=== PATIENT | female | born 1985 | race African-American/Black ===

== ENCOUNTER 2016-09-22 20:54 | Emergency (ER) | payer OTHER ==
[2016-09-22] MEDS ORDERED: KETOROLAC 30 MG/ML VIAL (J1885) As Ordered ONE (22:45)
[2016-09-22] MEDS ORDERED: METOCLOPRAMIDE INJ 10MG/2ML VIAL (J2765) As Ordered ONE (22:45)
[2016-09-22] MEDS ORDERED: diphenhydrAMINE INJ 50MG/ML VIAL (J1200) As Ordered ONE (22:45)
[2016-09-22 23:19] LABS: BASO % 0.2 % (0.0-1.0); EOS # 0.2 K/mm3 (0.0-0.50); EOS % 1.8 % (0.0-3.0); LARGE UNSTAINED CELL # 0.2 K/mm3 (0.0-0.4); LARGE UNSTAINED CELL % 1.4 % (0.0-4.0); LYMPH # 3.9 K/mm3 (1.5-4.5); LYMPH % 34.7 % (24.0-44.0); MEAN CORPUSCULAR HGB CONC 32.3 g/dl (32.0-36.5); MEAN CORPUSCULAR VOLUME 80.3 fl (80.0-96.0); MONO # 0.5 K/mm3 (0.0-0.8); NEUTROPHILS # 6.6 K/mm3 (1.8-7.7); NEUTROPHILS % 57.9 % (36.0-66.0); PLATELET COUNT, AUTOMATED 328 k/mm3 (150-450); RED CELL DISTRIBUTION WIDTH 13.3 % (11.5-14.5); WHITE BLOOD COUNT 11.3 K/mm3 (4.0-10.0)
--- NOTE | 2016-09-22 23:20 | REPUSA ---
CT of the head Clinical history: Headache. Technique: Multiple axial CT images were obtained through the head without administration of contrast . Findings: The ventricles and sulci are symmetric bilaterally. There is no evidence of acute hemorrhag e or infarct. There is no midline shift, mass effect, or extra-axial fluid collection. The osseous st ructures are unremarkable. The visualized paranasal sinuses and mastoid air cells are clear. Impression: Negative study.
[2016-09-22 23:36] LABS: ANION GAP 8 MEQ/L (8-16); BLOOD UREA NITROGEN 14 MG/DL (7-18); CALCIUM LEVEL 8.6 MG/DL (8.5-10.1); CARBON DIOXIDE LEVEL 23 MEQ/L (21-32); CHLORIDE LEVEL 107 MEQ/L (98-107); CREATININE FOR GFR 0.91 MG/DL (0.55-1.02); GLOMERULAR FILTRATION RATE > 60.0 (>60); GLUCOSE, FASTING 112 MG/DL (70-105); SODIUM LEVEL 138 MEQ/L (136-145)
[2016-09-22 23:39] LABS: ERYTHROCYTE SEDIMENTATION RATE 41 mm/hr (0-20)
[2016-09-22] MEDS ORDERED: dexameTHASONE 4 MG/ML 1ML VIAL (J1100) As Ordered ONE (23:57)
--- NOTE | 2016-09-23 00:21 | EDDOCDS ---
Physician Documentation [facility] Name: Kaylene Garduno Age: 30 yrs Sex: Female : 1985 Arrival Date: 09/22/2016 Time: 20:54 Bed I5 / M5 Private MD: KYLEE Mendoza Disposition: 09/22/16 23:58 Discharged to Home/Self Care. Impression: Migraine without aura, intractable. - Condition is Stable. - Discharge Instructions: Migraine Headache, Temporal Arteritis. - Prescriptions for Prednisone 20 mg Oral Tablet - take 2 tablet by ORAL route once daily for 5 days; 10 tablet. - Medication Reconciliation, Local Pharmacy Hours form. - Follow up: Jyoti Harp MD; When: Call to arrange an appointment; Reason: Recheck today's complaints, Continuance of care. Follow up: KYLEE Mendoza; When: Call to arrange an appointment; Reason: Recheck today's complaints, Continuance of care. - Problem is new. - Symptoms are unchanged. Historical: - Allergies: no known allergies; - Home Meds: 1. lisinopril 10 mg Oral tab 1 tab once daily 2. Januvia 25 mg oral tab daily 3. trazodone 150 mg Oral Tb24 1 tab nightly 4. Headache PM 25-500 mg oral tab 2 tabs once daily 5. acid hand fur cleaner as needed - PMHx: Hypertension; GERD; - PSHx: LEEP Procedure; ; - Social history: Smoking status: Patient uses tobacco products, current every day smoker. No barriers to communication noted, The patient speaks fluent Beninese. - Family history: Not pertinent. - : The pt / caregiver states he / she is not on anticoagulants. Home medication list is obtained from the patient. - Exposure Risk Screening:: None identified. 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 4 in. (162.56 cm) (R); 23:47 BP 134 / 68; Pulse 69; Resp 18; Temp 98.6; Pulse Ox 100% on R/A; kas2 20:56 Body Mass Index 42.05 (111.13 kg, 162.56 cm) dd6 MDM: 22:36 IV Saline Lock ordered. mo1 22:36 Metoclopramide 10 mg IV at 40 mg/hr once over 15 mins ordered. mo1 22:36 diphenhydrAMINE 25 mg IVP once ordered. mo1 22:36 ketorolac 30 mg IVP once ordered. mo1 22:37 CBC with Diff Ordered. EDMS 22:37 BMP Ordered. EDMS 22:37 CRP Ordered. EDMS 22:37 ESR Ordered. EDMS 22:37 CT Head Without Contrast Ordered. EDMS 22:44 [facility] Payment Agreement was scanned into [employer] and attached to record. zo 23:34 Financial registration complete. pm4 23:40 ESR Reviewed. mo1 23:40 CRP Reviewed. mo1 23:40 BMP Reviewed. mo1 23:41 CBC with Diff Reviewed. mo1 23:48 [facility] Payment Agreement was scanned into [employer] and attached to record. pm4 23:55 Dexamethasone 10 mg IV at bolus once ordered. mo1 23:55 CT Head Without Contrast Reviewed. mo1 Administered Medications: 23:16 Drug: Metoclopramide 10 mg [metoclopramide 5 mg/mL injection solution] Route: IV; Rate: pml 40 mg/hr; Infused Over: 15 mins; Site: right antecubital; 23:16 Drug: diphenhydrAMINE 25 mg [diphenhydramine 50 mg/mL injection solution (0.5 mL)] pml Route: IVP; Site: right antecubital; 23:16 Drug: ketorolac 30 mg [ketorolac 30 mg/mL (1 mL) injection solution (1 mL)] Route: IVP; pml Site: right antecubital; 09/23 00:01 Drug: Dexamethasone 10 mg [dexamethasone 4 mg/mL injection solution] Route: IV; Rate: kas2 bolus; Site: right antecubital; Signatures: Dispatcher [employer] Raffi Elias Paulina, RN RN pml O'Hagan, Michael, PA PA mo1 Brionna Clifford RN RN ms18 Karyn Clifford RN RN kas2 Andrew Jj, Reg Reg pm4 The chart was reviewed and I authenticate all verbal orders and agree with the evaluation and treatment provided.Attachments: 09/22 22:44 [facility] Payment Agreement zo 23:48 [facility] Payment Agreement pm4 MTDD
--- NOTE | 2016-09-23 00:22 | EDDOCDS ---
Nurse's Notes [facility] Name: Kaylene Garduno Age: 30 yrs Sex: Female : 1985 Arrival Date: 09/22/2016 Time: 20:54 Bed I5 / M5 Private MD: [place] [facility] [place]: Migraine without aura, intractable Presentation: 09/22 21:03 Presenting complaint: Patient states: since last Weds she has been having headaches on ms18 the L side of her head. This patient has no additional risk factors. Adult Sepsis Screening: The patient does not have new or worsening altered mentation. Patient's respiratory rate is less than 22. Systolic blood pressure is greater than 100. Patient has a qSOFA score of 0- Negative Sepsis Screen. Suicide/Homicide risk assessment- the patient denies having any suicidal and/or homicidal ideations and does not present with any other emotional, behavioral or mental health complaints. Status: The patient is a dependent. Transition of care: patient was not received from another setting of care. 21:03 Acuity: NITIN Level 3 ms18 21:03 Method Of Arrival: Walkin/Carried/Asstd ms18 Triage Assessment: 21:07 Headache History: This patient does not have a history of previous headaches. General: ms18 Appears in no apparent distress, comfortable, Behavior is appropriate for age, cooperative. Pain: Pain currently is 6 out of 10 on a pain scale. Pain began 3 hours ago last thus Also complains of photophobia, strain on relationship. HIV screening NA for this visit Offered previously. Neurological: Level of Consciousness is awake, alert, obeys commands, Oriented to person, place, time. Respiratory: Airway is patent Respiratory effort is even, unlabored. Derm: Skin is pink, warm & dry. normal. 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 lisinopril 10 mg Oral tab 1 tab once daily 2. Januvia 25 mg oral tab daily 3. trazodone 150 mg Oral Tb24 1 tab nightly 4. Headache PM 25-500 mg oral tab 2 tabs once daily 5. acid senior integration developer as needed - PMHx: Hypertension; GERD; - PSHx: LEEP Procedure; ; - Social history: Smoking status: Patient uses tobacco products, current every day smoker. No barriers to communication noted, The patient speaks fluent Swedish. - Family history: Not pertinent. - : The pt / caregiver states he / she is not on anticoagulants. Home medication list is obtained from the patient. - Exposure Risk Screening:: None identified. Screenin:14 Screening information is obtained from the patient. Fall risk: No risks identified. pml Assistance ADL's: requires no assistance with activities of daily living. Abuse/DV Screen: The patient / caregiver reports he/she is: not in a situation that causes fear, pain or injury. Nutritional screening: No deficits noted. Advance Directives: Currently, there is no health care proxy. home support is adequate. Assessment: 23:14 General: Appears in no apparent distress, comfortable, Behavior is appropriate for age, pml cooperative. Pain: Location: headache Pain currently is 8 out of 10 on a pain scale. Neurological: Level of Consciousness is awake, alert, Oriented to person, place, time. Cardiovascular: Capillary refill < 3 seconds. Respiratory: Airway is patent Respiratory effort is even, unlabored. GI: Abdomen is non- distended obese. Derm: Skin is pink, warm & dry. 23:36 General: reports headache is improved 2/10 - lights dimmed for comfort. resting quietly pml on stretcher. resps easy and unlabored, skin color normal. 09/23 00:02 General: Appears in no apparent distress, comfortable, Behavior is appropriate for age, kas2 cooperative. Pain: Location: head Pain currently is 2 out of 10 on a pain scale. Neurological: Level of Consciousness is awake, alert, Oriented to person, place, time. Respiratory: Airway is patent Respiratory effort is even, unlabored, Respiratory pattern is regular, symmetrical. Derm: Skin is intact, Skin is dry, Skin temperature is warm. Vital Signs: 09/22 20:56 BP 162 / 79; Pulse 78; Resp 18 S; Temp 98.4(O); Pulse Ox 100% on R/A; Weight 111.13 kg dd6 (R); Height 5 ft. 4 in. (162.56 cm) (R); 23:47 BP 134 / 68; Pulse 69; Resp 18; Temp 98.6; Pulse Ox 100% on R/A; kas2 20:56 Body Mass Index 42.05 (111.13 kg, 162.56 cm) dd6 Vitals: 20:56 Log In Time: September 22, 2016 at 20:54. dd6 ED Course: 20:55 Patient visited by Jacoby Christian PCA. dd6 20:55 [place] [facility] [place] Private Physician. dd6 20:55 Patient moved to Waiting dd6 20:56 Patient moved to Pre RCE dd6 21:04 Triage Initiated ms18 22:17 Patient moved to Triage 3 jmb 22:18 Celso Tobin PA is PHCP. mo1 22:18 Yves Ham DO is Attending Physician. mo1 22:28 Patient visited by Celso Tobin PA. mo1 22:37 Patient moved to I5 / M5 jmb 22:44 [facility] Payment Agreement was scanned into [employer] and attached to record. zo 23:14 The patient / caregiver is instructed regarding the plan of care and ED course. Patient pml has correct armband on for positive identification. Bed in low position. Call light in reach. 23:14 Inserted peripheral IV: 20gauge IV in right antecubital area and blood collected. pml Patient tolerated the procedure well. 23:15 Patient visited by Laura Reynoso RN. pml 23:36 Patient visited by Laura Reynoso RN. pml 23:47 Patient visited by Karyn Clifford RN. kas2 23:48 [facility] Payment Agreement was scanned into [employer] and attached to record. pm4 23:50 CT Head Without Contrast Returned. EDMS 23:58 Jyoti Harp MD is Referral Physician. mo1 09/23 00:01 Karyn Clifford RN is Primary Nurse. kas2 00:02 JENI Mendoza is Referral Physician. mo1 00:03 Patient visited by Karyn Clifford RN. kas2 00:18 Discontinued IV bleeding controlled, pressure dressing applied, No redness/swelling at kas2 site. No procedures done that require assistance. Administered Medications: 09/22 23:16 Drug: Metoclopramide 10 mg [metoclopramide 5 mg/mL injection solution] Route: IV; Rate: pml 40 mg/hr; Infused Over: 15 mins; Site: right antecubital; 23:16 Drug: diphenhydrAMINE 25 mg [diphenhydramine 50 mg/mL injection solution (0.5 mL)] pml Route: IVP; Site: right antecubital; 23:16 Drug: ketorolac 30 mg [ketorolac 30 mg/mL (1 mL) injection solution (1 mL)] Route: IVP; pml Site: right antecubital; 09/23 00:01 Drug: Dexamethasone 10 mg [dexamethasone 4 mg/mL injection solution] Route: IV; Rate: kas2 bolus; Site: right antecubital; Order Results: Lab Order: CBC with Diff; SPEC'M 09/22/16 22:49 Test: WHITE BLOOD COUNT; Value: 11.3; Range: 4.0-10.0; Abnormal: Above high normal; Units: K/mm3; Status: F Test: RED BLOOD COUNT; Value: 4.21; Range: 4.00-5.40; Units: M/mm3; Status: F Test: HEMOGLOBIN; Value: 10.9; Range: 12.0-16.0; Abnormal: Below low normal; Units: g/dl; Status: F Test: HEMATOCRIT; Value: 33.8; Range: 36.0-47.0; Abnormal: Below low normal; Units: %; Status: F Test: MEAN CORPUSCULAR VOLUME; Value: 80.3; Range: 80.0-96.0; Units: fl; Status: F Test: MEAN CORPUSCULAR HEMOGLOBIN; Value: 26.0; Range: 27.0-33.0; Abnormal: Below low normal; Units: pg; Status: F Test: MEAN CORPUSCULAR HGB CONC; Value: 32.3; Range: 32.0-36.5; Units: g/dl; Status: F Test: RED CELL DISTRIBUTION WIDTH; Value: 13.3; Range: 11.5-14.5; Units: %; Status: F Test: PLATELET COUNT, AUTOMATED; Value: 328; Range: 150-450; Units: k/mm3; Status: F Test: NEUTROPHILS %; Value: 57.9; Range: 36.0-66.0; Units: %; Status: F Test: LYMPH %; Value: 34.7; Range: 24.0-44.0; Units: %; Status: F Test: MONO %; Value: 4.0; Range: 0.0-5.0; Units: %; Status: F Test: EOS %; Value: 1.8; Range: 0.0-3.0; Units: %; Status: F Test: BASO %; Value: 0.2; Range: 0.0-1.0; Units: %; Status: F Test: LARGE UNSTAINED CELL %; Value: 1.4; Range: 0.0-4.0; Units: %; Status: F Test: NEUTROPHILS #; Value: 6.6; Range: 1.8-7.7; Units: K/mm3; Status: F Test: LYMPH #; Value: 3.9; Range: 1.5-4.5; Units: K/mm3; Status: F Test: MONO #; Value: 0.5; Range: 0.0-0.8; Units: K/mm3; Status: F Test: EOS #; Value: 0.2; Range: 0.0-0.50; Units: K/mm3; Status: F Test: BASO #; Value: 0.0; Range: 0.0-0.2; Units: K/mm3; Status: F Test: LARGE UNSTAINED CELL #; Value: 0.2; Range: 0.0-0.4; Units: K/mm3; Status: F Lab Order: [facility]; SPEC'M 09/22/16 22:49 Test: GLUCOSE, FASTING; Value: 112; Range: 70-105; Abnormal: Above high normal; Units: MG/DL; Status: F Test: BLOOD UREA NITROGEN; Value: 14; Range: 7-18; Units: MG/DL; Status: F Test: CREATININE FOR GFR; Value: 0.91; Range: 0.55-1.02; Units: MG/DL; Status: F Test: GLOMERULAR FILTRATION RATE; Value: > 60.0; Range: >60; Status: F Test: SODIUM LEVEL; Value: 138; Range: 136-145; Units: MEQ/L; Status: F Test: POTASSIUM SERUM; Value: 4.0; Range: 3.5-5.1; Units: MEQ/L; Status: F Test: CHLORIDE LEVEL; Value: 107; Range: 98-107; Units: MEQ/L; Status: F Test: CARBON DIOXIDE LEVEL; Value: 23; Range: 21-32; Units: MEQ/L; Status: F Test: ANION GAP; Value: 8; Range: 8-16; Units: MEQ/L; Status: F Test: CALCIUM LEVEL; Value: 8.6; Range: 8.5-10.1; Units: MG/DL; Status: F Test Note: ; Units are mL/min/1.73 m2 Chronic Kidney Disease Staging per NKF: Stage I & II GFR >=60 Normal to Mildly Decreased Stage III GFR 30-59 Moderately Decreased Stage IV GFR 15-29 Severely Decreased Stage V GFR <15 Very Little GFR Left ESRD GFR <15 on PREPARATION ROOM MANAGER Lab Order: CRP; SPEC'M 09/22/16 22:49 Test: C REACTIVE PROTEIN QUANTITATIV; Value: 3.16; Range: 0.00-0.30; Abnormal: Above high normal; Units: MG/DL; Status: F Lab Order: ESR; SPEC'M 09/22/16 22:49 Test: ERYTHROCYTE SEDIMENTATION RATE; Value: 41; Range: 0-20; Abnormal: Above high normal; Units: mm/hr; Status: F Radiology Order: CT Head Without Contrast Test: CT Head Without Contrast REASON FOR EXAMINATION: LEFT SIDED HEADACHE; ; CT of the head; Clinical history: Headache.; Technique: Multiple axial CT images were obtained through the head without administration of contrast; .; Findings: The ventricles and sulci are symmetric bilaterally. There is no evidence of acute hemorrhag; e or infarct. There is no midline shift, mass effect, or extra-axial fluid collection. The osseous st; ructures are unremarkable. The visualized paranasal sinuses and mastoid air cells are clear.; Impression: Negative study.; ; Outcome: 09/22 23:58 Discharge ordered by Provider. mo1 09/23 00:18 Discharge Assessment: patient administered narcotics - no. The following High Risk kas2 Discharge criteria are identified: None. Discharged to home ambulatory, with family. Condition: good Condition: stable Condition: improved. CT Study completed. Property :Personal belongings accompany Pt. 00:19 Patient left the ED. kas2 Signatures: Dispatcher [employer] EDMS Raffi Arrington Daniell, [place]OV[place] METAL SASH SETTER dd6 Laura Reynoso RN RN Celso Ryan PA PA mo1 Storm Willson,RN RN jmb Brionna Clifford RN RN ms18 Karyn Clifford RN RN kas2 Andrew Jj, Reg Reg pm4 MTDD
--- NOTE | 2016-09-25 01:20 | EDDOCDS ---
Physician Documentation [facility] Name: Kaylene Garduno Age: 30 yrs Sex: Female : 1985 Arrival Date: 09/22/2016 Time: 20:54 Bed I5 / M5 Private MD: KYLEE Mendoza Disposition: 09/22/16 23:58 Discharged to Home/Self Care. Impression: Migraine without aura, intractable. - Condition is Stable. - Discharge Instructions: Migraine Headache, Temporal Arteritis. - Prescriptions for Prednisone 20 mg Oral Tablet - take 2 tablet by ORAL route once daily for 5 days; 10 tablet. - Medication Reconciliation, Local Pharmacy Hours form. - Follow up: Jyoti Harp MD; When: Call to arrange an appointment; Reason: Recheck today's complaints, Continuance of care. Follow up: KYLEE Mendoza; When: Call to arrange an appointment; Reason: Recheck today's complaints, Continuance of care. - Problem is new. - Symptoms are unchanged. Historical: - Allergies: no known allergies; - Home Meds: 1. lisinopril 10 mg Oral tab 1 tab once daily 2. Januvia 25 mg oral tab daily 3. trazodone 150 mg Oral Tb24 1 tab nightly 4. Headache PM 25-500 mg oral tab 2 tabs once daily 5. acid director medical economics as needed - PMHx: Hypertension; GERD; - PSHx: LEEP Procedure; ; - Social history: Smoking status: Patient uses tobacco products, current every day smoker. No barriers to communication noted, The patient speaks fluent Welsh. - Family history: Not pertinent. - : The pt / caregiver states he / she is not on anticoagulants. Home medication list is obtained from the patient. - Exposure Risk Screening:: None identified. 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 4 in. (162.56 cm) (R); 23:47 BP 134 / 68; Pulse 69; Resp 18; Temp 98.6; Pulse Ox 100% on R/A; kas2 20:56 Body Mass Index 42.05 (111.13 kg, 162.56 cm) dd6 MDM: 22:36 IV Saline Lock ordered. mo1 22:36 Metoclopramide 10 mg IV at 40 mg/hr once over 15 mins ordered. mo1 22:36 diphenhydrAMINE 25 mg IVP once ordered. mo1 22:36 ketorolac 30 mg IVP once ordered. mo1 22:37 CBC with Diff Ordered. EDMS 22:37 BMP Ordered. EDMS 22:37 CRP Ordered. EDMS 22:37 ESR Ordered. EDMS 22:37 CT Head Without Contrast Ordered. EDMS 22:44 [facility] Payment Agreement was scanned into [employer] and attached to record. zo 23:34 Financial registration complete. pm4 23:40 ESR Reviewed. mo1 23:40 CRP Reviewed. mo1 23:40 BMP Reviewed. mo1 23:41 CBC with Diff Reviewed. mo1 23:48 [facility] Payment Agreement was scanned into [employer] and attached to record. pm4 23:55 Dexamethasone 10 mg IV at bolus once ordered. mo1 23:55 CT Head Without Contrast Reviewed. mo1 09/23 11:52 T-Sheet-- Draft Copy was scanned into [employer] and attached to record. gb Administered Medications: 09/22 23:16 Drug: Metoclopramide 10 mg [metoclopramide 5 mg/mL injection solution] Route: IV; Rate: pml 40 mg/hr; Infused Over: 15 mins; Site: right antecubital; 23:16 Drug: diphenhydrAMINE 25 mg [diphenhydramine 50 mg/mL injection solution (0.5 mL)] [facility] Route: IVP; Site: right antecubital; 23:16 Drug: ketorolac 30 mg [ketorolac 30 mg/mL (1 mL) injection solution (1 mL)] Route: IVP; pml Site: right antecubital; 09/23 00:01 Drug: Dexamethasone 10 mg [dexamethasone 4 mg/mL injection solution] Route: IV; Rate: kas2 bolus; Site: right antecubital; Signatures: Dispatcher [employer] EDMS Lakeshia Jo, Dung Reg gb Raffi Arrington Paulina, RN RN pml Celso Tobin PA PA mo1 Brionna Clifford,RN RN ms18 Karyn Clifford RN RN kas2 Andrew Jj, Reg Reg pm4 The chart was reviewed and I authenticate all verbal orders and agree with the evaluation and treatment provided.Attachments: 09/22 22:44 [facility] [place] Payment Agreement zo 23:48 [facility] Payment Agreement pm4 09/23 11:52 T-Sheet-- Draft Copy gb Chart Complete MTDD
--- NOTE | 2016-09-25 01:20 | EDDOCDS ---
Nurse's Notes [facility] Name: Kaylene Garduno Age: 30 yrs Sex: Female : 1985 Arrival Date: 09/22/2016 Time: 20:54 Bed I5 / M5 Private MD: [place] [facility]: Migraine without aura, intractable Presentation: 09/22 21:03 Presenting complaint: Patient states: since last Weds she has been having headaches on ms18 the L side of her head. This patient has no additional risk factors. Adult Sepsis Screening: The patient does not have new or worsening altered mentation. Patient's respiratory rate is less than 22. Systolic blood pressure is greater than 100. Patient has a qSOFA score of 0- Negative Sepsis Screen. Suicide/Homicide risk assessment- the patient denies having any suicidal and/or homicidal ideations and does not present with any other emotional, behavioral or mental health complaints. Status: The patient is a dependent. Transition of care: patient was not received from another setting of care. 21:03 Acuity: NITIN Level 3 ms18 21:03 Method Of Arrival: Walkin/Carried/Asstd ms18 Triage Assessment: 21:07 Headache History: This patient does not have a history of previous headaches. General: ms18 Appears in no apparent distress, comfortable, Behavior is appropriate for age, cooperative. Pain: Pain currently is 6 out of 10 on a pain scale. Pain began 3 hours ago last thus Also complains of photophobia, strain on relationship. HIV screening NA for this visit Offered previously. Neurological: Level of Consciousness is awake, alert, obeys commands, Oriented to person, place, time. Respiratory: Airway is patent Respiratory effort is even, unlabored. Derm: Skin is pink, warm & dry. normal. PET CARE ATTENDANT: 21:07 LMP 09/22/2016 ms18 Historical: - Allergies: no known allergies; - Home Meds: 1. lisinopril 10 mg Oral tab 1 tab once daily 2. Januvia 25 mg oral tab daily 3. trazodone 150 mg Oral Tb24 1 tab nightly 4. Headache PM 25-500 mg oral tab 2 tabs once daily 5. 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 No barriers to communication noted, The patient speaks fluent Vincentian. - Family history: Not pertinent. - : The pt / caregiver states he / she is not on anticoagulants. Home medication list is obtained from the patient. - Exposure Risk Screening:: None identified. Screenin:14 Screening information is obtained from the patient. Fall risk: No risks identified. pml Assistance ADL's: requires no assistance with activities of daily living. Abuse/DV Screen: The patient / caregiver reports he/she is: not in a situation that causes fear, pain or injury. Nutritional screening: No deficits noted. Advance Directives: Currently, there is no health care proxy. home support is adequate. Assessment: 23:14 General: Appears in no apparent distress, comfortable, Behavior is appropriate for age, pml cooperative. Pain: Location: headache Pain currently is 8 out of 10 on a pain scale. Neurological: Level of Consciousness is awake, alert, Oriented to person, place, time. Cardiovascular: Capillary refill < 3 seconds. Respiratory: Airway is patent Respiratory effort is even, unlabored. GI: Abdomen is non- distended obese. Derm: Skin is pink, warm & dry. 23:36 General: reports headache is improved 2/10 - lights dimmed for comfort. resting quietly pml on stretcher. resps easy and unlabored, skin color normal. 09/23 00:02 General: Appears in no apparent distress, comfortable, Behavior is appropriate for age, kas2 cooperative. Pain: Location: head Pain currently is 2 out of 10 on a pain scale. Neurological: Level of Consciousness is awake, alert, Oriented to person, place, time. Respiratory: Airway is patent Respiratory effort is even, unlabored, Respiratory pattern is regular, symmetrical. Derm: Skin is intact, Skin is dry, Skin temperature is warm. Vital Signs: 09/22 20:56 BP 162 / 79; Pulse 78; Resp 18 S; Temp 98.4(O); Pulse Ox 100% on R/A; Weight 111.13 kg dd6 (R); Height 5 ft. 4 in. (162.56 cm) (R); 23:47 BP 134 / 68; Pulse 69; Resp 18; Temp 98.6; Pulse Ox 100% on R/A; kas2 20:56 Body Mass Index 42.05 (111.13 kg, 162.56 cm) dd6 Vitals: 20:56 Log In Time: September 22, 2016 at 20:54. dd6 ED Course: 20:55 Patient visited by Jacoby Christian PCA. dd6 20:55 [facility] Physician. dd6 20:55 Patient moved to Waiting dd6 20:56 Patient moved to Pre RCE dd6 21:04 Triage Initiated ms18 22:17 Patient moved to Triage 3 jmb 22:18 Celso oTbin PA is PHCP. mo1 22:18 Yves Ham DO is Attending Physician. mo1 22:28 Patient visited by Celso Tobin PA. mo1 22:37 Patient moved to I5 / M5 jmb 22:44 [facility] Payment Agreement was scanned into [employer] and attached to record. zo 23:14 The patient / caregiver is instructed regarding the plan of care and ED course. Patient pml has correct armband on for positive identification. Bed in low position. Call light in reach. 23:14 Inserted peripheral IV: 20gauge IV in right antecubital area and blood collected. pml Patient tolerated the procedure well. 23:15 Patient visited by Laura Reynoso RN. pml 23:36 Patient visited by Laura Reynoso RN. pml 23:47 Patient visited by Karyn Clifford RN. kas2 23:48 [facility] Payment Agreement was scanned into Program[employer] and attached to record. pm4 23:50 CT Head Without Contrast Returned. EDMS 23:58 Jyoti Harp MD is Referral Physician. mo1 09/23 00:01 Karyn Clifford RN is Primary Nurse. kas2 00:02 [facility] [place]erral Physician. mo1 00:03 Patient visited by Karyn Clifford RN. kas2 00:18 Discontinued IV bleeding controlled, pressure dressing applied, No redness/swelling at kas2 site. No procedures done that require assistance. 11:52 T-Sheet-- Draft Copy was scanned into Program[employer] and attached to record. gb Administered Medications: 09/22 23:16 Drug: Metoclopramide 10 mg [metoclopramide 5 mg/mL injection solution] Route: IV; Rate: pml 40 mg/hr; Infused Over: 15 mins; Site: right antecubital; 23:16 Drug: diphenhydrAMINE 25 mg [diphenhydramine 50 mg/mL injection solution (0.5 mL)] pml Route: IVP; Site: right antecubital; 23:16 Drug: ketorolac 30 mg [ketorolac 30 mg/mL (1 mL) injection solution (1 mL)] Route: IVP; pml Site: right antecubital; 09/23 00:01 Drug: Dexamethasone 10 mg [dexamethasone 4 mg/mL injection solution] Route: IV; Rate: kas2 bolus; Site: right antecubital; Order Results: Lab Order: CBC with Diff; SPEC'M 09/22/16 22:49 Test: WHITE BLOOD COUNT; Value: 11.3; Range: 4.0-10.0; Abnormal: Above high normal; Units: K/mm3; Status: F Test: RED BLOOD COUNT; Value: 4.21; Range: 4.00-5.40; Units: M/mm3; Status: F Test: HEMOGLOBIN; Value: 10.9; Range: 12.0-16.0; Abnormal: Below low normal; Units: g/dl; Status: F Test: HEMATOCRIT; Value: 33.8; Range: 36.0-47.0; Abnormal: Below low normal; Units: %; Status: F Test: MEAN CORPUSCULAR VOLUME; Value: 80.3; Range: 80.0-96.0; Units: fl; Status: F Test: MEAN CORPUSCULAR HEMOGLOBIN; Value: 26.0; Range: 27.0-33.0; Abnormal: Below low normal; Units: pg; Status: F Test: MEAN CORPUSCULAR HGB CONC; Value: 32.3; Range: 32.0-36.5; Units: g/dl; Status: F Test: RED CELL DISTRIBUTION WIDTH; Value: 13.3; Range: 11.5-14.5; Units: %; Status: F Test: PLATELET COUNT, AUTOMATED; Value: 328; Range: 150-450; Units: k/mm3; Status: F Test: NEUTROPHILS %; Value: 57.9; Range: 36.0-66.0; Units: %; Status: F Test: LYMPH %; Value: 34.7; Range: 24.0-44.0; Units: %; Status: F Test: MONO %; Value: 4.0; Range: 0.0-5.0; Units: %; Status: F Test: EOS %; Value: 1.8; Range: 0.0-3.0; Units: %; Status: F Test: BASO %; Value: 0.2; Range: 0.0-1.0; Units: %; Status: F Test: LARGE UNSTAINED CELL %; Value: 1.4; Range: 0.0-4.0; Units: %; Status: F Test: NEUTROPHILS #; Value: 6.6; Range: 1.8-7.7; Units: K/mm3; Status: F Test: LYMPH #; Value: 3.9; Range: 1.5-4.5; Units: K/mm3; Status: F Test: MONO #; Value: 0.5; Range: 0.0-0.8; Units: K/mm3; Status: F Test: EOS #; Value: 0.2; Range: 0.0-0.50; Units: K/mm3; Status: F Test: BASO #; Value: 0.0; Range: 0.0-0.2; Units: K/mm3; Status: F Test: LARGE UNSTAINED CELL #; Value: 0.2; Range: 0.0-0.4; Units: K/mm3; Status: F Lab Order: [facility]; SPEC'M 09/22/16 22:49 Test: GLUCOSE, FASTING; Value: 112; Range: 70-105; Abnormal: Above high normal; Units: MG/DL; Status: F Test: BLOOD UREA NITROGEN; Value: 14; Range: 7-18; Units: MG/DL; Status: F Test: CREATININE FOR GFR; Value: 0.91; Range: 0.55-1.02; Units: MG/DL; Status: F Test: GLOMERULAR FILTRATION RATE; Value: > 60.0; Range: >60; Status: F Test: SODIUM LEVEL; Value: 138; Range: 136-145; Units: MEQ/L; Status: F Test: POTASSIUM SERUM; Value: 4.0; Range: 3.5-5.1; Units: MEQ/L; Status: F Test: CHLORIDE LEVEL; Value: 107; Range: 98-107; Units: MEQ/L; Status: F Test: CARBON DIOXIDE LEVEL; Value: 23; Range: 21-32; Units: MEQ/L; Status: F Test: ANION GAP; Value: 8; Range: 8-16; Units: MEQ/L; Status: F Test: CALCIUM LEVEL; Value: 8.6; Range: 8.5-10.1; Units: MG/DL; Status: F Test Note: ; Units are mL/min/1.73 m2 Chronic Kidney Disease Staging per NKF: Stage I & II GFR >=60 Normal to Mildly Decreased Stage III GFR 30-59 Moderately Decreased Stage IV GFR 15-29 Severely Decreased Stage V GFR <15 Very Little GFR Left ESRD GFR <15 on SUPERVISOR STAVE CUTTING Lab Order: CRP; SPEC'M 09/22/16 22:49 Test: C REACTIVE PROTEIN QUANTITATIV; Value: 3.16; Range: 0.00-0.30; Abnormal: Above high normal; Units: MG/DL; Status: F Lab Order: ESR; SPEC'M 09/22/16 22:49 Test: ERYTHROCYTE SEDIMENTATION RATE; Value: 41; Range: 0-20; Abnormal: Above high normal; Units: mm/hr; Status: F Radiology Order: CT Head Without Contrast Test: CT Head Without Contrast REASON FOR EXAMINATION: LEFT SIDED HEADACHE; ; CT of the head; Clinical history: Headache.; Technique: Multiple axial CT images were obtained through the head without administration of contrast; .; Findings: The ventricles and sulci are symmetric bilaterally. There is no evidence of acute hemorrhag; e or infarct. There is no midline shift, mass effect, or extra-axial fluid collection. The osseous st; ructures are unremarkable. The visualized paranasal sinuses and mastoid air cells are clear.; Impression: Negative study.; ; Outcome: 09/22 23:58 Discharge ordered by Provider. mo1 09/23 00:18 Discharge Assessment: patient administered narcotics - no. The following High Risk [facility] Discharge criteria are identified: None. Discharged to home ambulatory, with family. Condition: good Condition: stable Condition: improved. CT Study completed. Property :Personal belongings accompany Pt. 00:19 Patient left the ED. kas2 Signatures: Dispatcher [employer] EDLakeshia Peralta, Jacy Guptann zo Jacoby Christian, SENIOR DATA QUALITY ANALYST SENIOR DATA QUALITY ANALYST dd6 Laura Reynoso,RN RN pml Celso Tobin, RYLIE PA gricel1 Storm Willson,RN RN lisbetb Brionna Clifford,RN RN ms18 Karyn Clifford,RN RN kas2 Andrew Jj, Reg Reg pm4 Chart Complete MTDD
--- NOTE | 2016-09-25 01:20 | EDDOCDS ---
Physician Documentation [facility] Name: Kaylene Garduno Age: 30 yrs Sex: Female : 1985 Arrival Date: 09/22/2016 Time: 20:54 Bed I5 / M5 Private MD: KYLEE Mendoza Disposition: 09/22/16 23:58 Discharged to Home/Self Care. Impression: Migraine without aura, intractable. - Condition is Stable. - Discharge Instructions: Migraine Headache, Temporal Arteritis. - Prescriptions for Prednisone 20 mg Oral Tablet - take 2 tablet by ORAL route once daily for 5 days; 10 tablet. - Medication Reconciliation, Local Pharmacy Hours form. - Follow up: Jyoti Harp MD; When: Call to arrange an appointment; Reason: Recheck today's complaints, Continuance of care. Follow up: KYLEE Mendoza; When: Call to arrange an appointment; Reason: Recheck today's complaints, Continuance of care. - Problem is new. - Symptoms are unchanged. Historical: - Allergies: no known allergies; - Home Meds: 1. lisinopril 10 mg Oral tab 1 tab once daily 2. Januvia 25 mg oral tab daily 3. trazodone 150 mg Oral Tb24 1 tab nightly 4. Headache PM 25-500 mg oral tab 2 tabs once daily 5. 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 No barriers to communication noted, The patient speaks fluent Syriac. - Family history: Not pertinent. - : The pt / caregiver states he / she is not on anticoagulants. Home medication list is obtained from the patient. - Exposure Risk Screening:: None identified. 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 4 in. (162.56 cm) (R); 23:47 BP 134 / 68; Pulse 69; Resp 18; Temp 98.6; Pulse Ox 100% on R/A; kas2 20:56 Body Mass Index 42.05 (111.13 kg, 162.56 cm) dd6 MDM: 22:36 IV Saline Lock ordered. mo1 22:36 Metoclopramide 10 mg IV at 40 mg/hr once over 15 mins ordered. mo1 22:36 diphenhydrAMINE 25 mg IVP once ordered. mo1 22:36 ketorolac 30 mg IVP once ordered. mo1 22:37 CBC with Diff Ordered. EDMS 22:37 BMP Ordered. EDMS 22:37 CRP Ordered. EDMS 22:37 ESR Ordered. EDMS 22:37 CT Head Without Contrast Ordered. EDMS 22:44 [facility] Payment Agreement was scanned into Mi[employer] and attached to record. zo 23:34 Financial registration complete. pm4 23:40 ESR Reviewed. mo1 23:40 CRP Reviewed. mo1 23:40 BMP Reviewed. mo1 23:41 CBC with Diff Reviewed. mo1 23:48 [facility] Payment Agreement was scanned into [employer] and attached to record. pm4 23:55 Dexamethasone 10 mg IV at bolus once ordered. mo1 23:55 CT Head Without Contrast Reviewed. mo1 09/23 11:52 T-Sheet-- Draft Copy was scanned into Miira and attached to record. gb Administered Medications: 09/22 23:16 Drug: Metoclopramide 10 mg [metoclopramide 5 mg/mL injection solution] Route: IV; Rate: pml 40 mg/hr; Infused Over: 15 mins; Site: right antecubital; 23:16 Drug: diphenhydrAMINE 25 mg [diphenhydramine 50 mg/mL injection solution (0.5 mL)] [facility] Route: IVP; Site: right antecubital; 23:16 Drug: ketorolac 30 mg [ketorolac 30 mg/mL (1 mL) injection solution (1 mL)] Route: IVP; pml Site: right antecubital; 09/23 00:01 Drug: Dexamethasone 10 mg [dexamethasone 4 mg/mL injection solution] Route: IV; Rate: kas2 bolus; Site: right antecubital; Signatures: Dispatcher [employer] EDMS Lakeshia Jo, Dung Reg gb Raffi Arrington Paulina, RN RN pml Celso Tobin PA PA mo1 Brionna Clifford,RN RN ms18 Karyn Clifford RN RN kas2 Andrew Jj, Reg Reg pm4 The chart was reviewed and I authenticate all verbal orders and agree with the evaluation and treatment provided.Attachments: 09/22 22:44 [facility] [place] Payment Agreement zo 23:48 [facility] Payment Agreement pm4 09/23 11:52 T-Sheet-- Draft Copy gb Chart Complete MTDD
== END 2016-09-23 00:19 | disposition home or self-care (01) ==
LOC: M ED 20:54
DX: R51 Headache (principal); I10 Essential (primary) hypertension; K21.9 Gastro-esophageal reflux disease without esophagitis; F17.200 Nicotine dependence, unspecified, uncomplicated; Z79.899 Other long term (current) drug therapy
CPT/HCPCS: 36415; 70450; 80048; 85025; 85652; 86140; 96374; 96375; 99284; J1100; J1200; J1885; J2765

== ENCOUNTER → 2016-12-08 | Outpatient (REF) | payer MEDICAID | LOC: M SFHCLERA 18:23 | PROVIDERS: ATTEND Physician Assistant | DX: J02.9 Acute pharyngitis, unspecified (principal) ==

== ENCOUNTER → 2017-01-27 | Outpatient (REF) | payer OTHER, MEDICAID ==
[2017-01-27 12:20] LABS: MEAN CORPUSCULAR HEMOGLOBIN 27.5 pg (27.0-33.0); MEAN CORPUSCULAR HGB CONC 32.8 g/dl (32.0-36.5); MEAN CORPUSCULAR VOLUME 83.9 fl (80.0-96.0); RED CELL DISTRIBUTION WIDTH 13.2 % (11.5-14.5); WHITE BLOOD COUNT 10.5 K/mm3 (4.0-10.0)
[2017-01-27 12:35] LABS: ALBUMIN 3.6 GM/DL (3.2-5.2); ALBUMIN/GLOBULIN RATIO 1.03 (1.00-1.93); ALKALINE PHOSPHATASE 45 U/L (45-117); ALT/SGPT 21 U/L (12-78); ANION GAP 5 MEQ/L (8-16); AST/SGOT 10 U/L (15-37); BILIRUBIN,TOTAL 0.3 MG/DL (0.2-1.0); BLOOD UREA NITROGEN 9 MG/DL (7-18); CALCIUM LEVEL 8.7 MG/DL (8.5-10.1); CARBON DIOXIDE LEVEL 27 MEQ/L (21-32); CHLORIDE LEVEL 107 MEQ/L (98-107); CHOLESTEROL LEVEL 160 MG/DL (<200); CREATININE FOR GFR 0.87 MG/DL (0.55-1.02); FREE T4 1.03 NG/DL (0.76-1.46); GLOMERULAR FILTRATION RATE > 60.0 (>60); GLUCOSE, FASTING 127 MG/DL (70-105); POTASSIUM SERUM 4.7 MEQ/L (3.5-5.1); SODIUM LEVEL 139 MEQ/L (136-145); TOTAL PROTEIN 7.1 GM/DL (6.4-8.2); TRIGLYCERIDES LEVEL 75 MG/DL (<150)
== END ==
LOC: M SFHCLERA 08:40
PROVIDERS: ATTEND Family Medicine
DX: Z30.011 Encounter for initial prescription of contraceptive pills (principal); R73.03 Prediabetes; J02.9 Acute pharyngitis, unspecified

== ENCOUNTER → 2017-03-11 | Outpatient (REF) | payer OTHER, MEDICAID | LOC: M SFHCLERA 10:34 | PROVIDERS: ATTEND Family Medicine | DX: Z3A.01 Less than 8 weeks gestation of pregnancy (principal) ==

== ENCOUNTER → 2017-03-11 | Outpatient (CLI) | payer OTHER | LOC: M LAB 11:28 | PROVIDERS: ATTEND Family Medicine | DX: Z3A.01 Less than 8 weeks gestation of pregnancy (principal) ==

== ENCOUNTER → 2017-03-13 | Outpatient (CLI) | payer OTHER ==
--- NOTE | 2017-03-13 11:06 | REP ---
Obstetric sonography: History: Supervision of . Findings: Transabdominal and transvaginal scanning demonstrates a intrauterine gestational sac containing a yolk sac and what appears to be an embryonic pole. No motion or cardiac motion was observed. The yolk sac is 5.8 mm. The crown-rump length is 3.9 mm. This would correspond with a 6-week 0-day gestational age estimate. A small subchorionic hemorrhage is identified. This measures 2.0 x 2.0 centimeters. Impression: Findings consistent with intrauterine demise at 6 weeks 0 days by crown-rump length. The patient is 10 weeks 0 days by LMP. Clinical and possibly sonographic followup is advised. Signed by Johnny España MD 03/13/2017 10:57 A
== END ==
LOC: M LRY 09:05
PROVIDERS: ATTEND Family Medicine
DX: Z36 Encounter for antenatal screening of mother (principal)

== ENCOUNTER → 2017-03-17 | Outpatient (REF) | payer OTHER, MEDICAID | LOC: M SFHCLERA 09:24 | PROVIDERS: ATTEND Family Medicine | DX: O03.9 Complete or unspecified spontaneous abortion without complication (principal) ==

== ENCOUNTER → 2017-04-13 | Outpatient (CLI) | payer OTHER, MEDICAID ==
[2017-04-13 16:24] LABS: MEAN CORPUSCULAR HEMOGLOBIN 27.5 pg (27.0-33.0); MEAN CORPUSCULAR HGB CONC 31.5 g/dl (32.0-36.5); MEAN CORPUSCULAR VOLUME 87.4 fl (80.0-96.0); RED CELL DISTRIBUTION WIDTH 13.8 % (11.5-14.5); WHITE BLOOD COUNT 7.6 K/mm3 (4.0-10.0)
== END ==
LOC: M LAB 15:50
PROVIDERS: ATTEND Family Medicine
DX: O03.9 Complete or unspecified spontaneous abortion without complication (principal)

== ENCOUNTER → 2017-04-13 | Outpatient (REF) | payer OTHER, MEDICAID | LOC: M SFHCLERA 13:27 | PROVIDERS: ATTEND Family Medicine | DX: O03.9 Complete or unspecified spontaneous abortion without complication (principal) ==

== ENCOUNTER → 2017-09-14 | Outpatient (REF) | payer OTHER, MEDICAID ==
[2017-09-14 12:21] LABS: MALB URINE SIEMENS 7.4 MG/L
[2017-09-14 12:25] LABS: ALBUMIN 3.9 GM/DL (3.2-5.2); ALBUMIN/GLOBULIN RATIO 1.05 (1.00-1.93); ALKALINE PHOSPHATASE 48 U/L (45-117); ALT/SGPT 18 U/L (12-78); ANION GAP 7 MEQ/L (8-16); AST/SGOT 15 U/L (7-37); BASO # 0.1 10^3/uL (0.0-0.2); BASO % 0.6 % (0.0-1.0); BILIRUBIN,TOTAL 0.2 MG/DL (0.2-1.0); BLOOD UREA NITROGEN 10 MG/DL (7-18); CALCIUM LEVEL 8.5 MG/DL (8.5-10.1); CARBON DIOXIDE LEVEL 23 MEQ/L (21-32); CHLORIDE LEVEL 108 MEQ/L (98-107); CHOLESTEROL LEVEL 163 MG/DL (<200); CHOLESTEROL RISK RATIO 3.395 (<5); CREATININE FOR GFR 0.81 MG/DL (0.55-1.02); EOS # 0.2 10^3/uL (0.0-0.50); EOS % 1.9 % (0.0-3.0); GLOMERULAR FILTRATION RATE > 60.0 (>60); GLUCOSE, FASTING 111 MG/DL (70-105); HDL CHOLESTEROL 48 MG/DL (>40); IMMATURE GRANULOCYTE % 0.3 % (0-0); LDL CHOLESTEROL 101.4 MG/DL (<100); LYMPH # 3.1 10^3/uL (1.5-4.5); MEAN CORPUSCULAR HEMOGLOBIN 26.4 pg (27.0-33.0); MEAN CORPUSCULAR HGB CONC 32.4 g/dl (32.0-36.5); MEAN CORPUSCULAR VOLUME 81.3 fl (80.0-96.0); MONO # 0.6 10^3/uL (0.0-0.8); MONO % 6.3 % (0.0-5.0); NEUTROPHILS # 4.9 10^3/uL (1.8-7.7); NEUTROPHILS % 55.9 % (36.0-66.0); NON-HDL-C 115 MG/DL; POTASSIUM SERUM 4.6 MEQ/L (3.5-5.1); RED BLOOD COUNT 4.55 10^6/uL (4.00-5.40); RED CELL DISTRIBUTION WIDTH 14.3 % (11.5-14.5); SODIUM LEVEL 138 MEQ/L (136-145); TOTAL PROTEIN 7.6 GM/DL (6.4-8.2); TRIGLYCERIDES LEVEL 68 MG/DL (<150); WHITE BLOOD COUNT 8.8 10^3/uL (4.0-10.0)
[2017-09-14 12:35] LABS: ADD MORPHOLOGY? YES; PLATELET COUNT, AUTOMATED 323 10^3/uL (150-450); POS COUNT POS FLAG
[2017-09-14 12:36] LABS: PLATELET CLUMPS SMALL AMT; PLATELET ESTIMATE NORMAL (NORMAL); POIKILOCYTOSIS 1+
[2017-09-14 12:45] LABS: ESTIMATED AVERAGE GLUCOSE 134 MG/DL (60-110); HEMOGLOBIN A1c 6.3 %
== END ==
LOC: M SFHCLERA 08:57
DX: E11.9 Type 2 diabetes mellitus without complications (principal)

== ENCOUNTER → 2017-10-12 | Outpatient (REF) | payer OTHER, MEDICAID ==
[2017-10-12 22:49] LABS: CHLAMYDIA DNA AMPLIFICATION NEGATIVE (NEGATIVE); GC DNA AMPLIFICATION NEGATIVE (NEGATIVE)
[2017-10-14 11:28] LABS: HIV 1&2 SCREEN CENTAUR NEGATIVE (NEGATIVE)
== END ==
LOC: M SFHCLERA 11:32
DX: Z11.3 Encounter for screening for infections with a predominantly sexual mode of transmission (principal)

== ENCOUNTER → 2017-11-20 | Outpatient (REF) | payer OTHER, MEDICAID | LOC: M SFHCLERA 11:25 | DX: J02.9 Acute pharyngitis, unspecified (principal) ==

== ENCOUNTER → 2018-02-08 | Outpatient (REF) | payer OTHER, MEDICAID | LOC: M SFHCLERA 08:42 | DX: E11.9 Type 2 diabetes mellitus without complications (principal) ==

== ENCOUNTER → 2018-09-29 | Outpatient (REF) | payer OTHER, MEDICAID ==
[2018-09-29 12:19] LABS: BASO # 0.1 10^3/uL (0.0-0.2); BASO % 0.6 % (0.0-1.0); EOS # 0.2 10^3/uL (0.0-0.50); EOS % 2.3 % (0.0-3.0); HEMOGLOBIN 11.7 g/dl (12.0-15.5); LYMPH # 2.7 10^3/uL (1.5-4.5); LYMPH % 32.5 % (24.0-44.0); MEAN CORPUSCULAR HEMOGLOBIN 26.4 pg (27.0-33.0); MEAN CORPUSCULAR HGB CONC 31.6 g/dl (32.0-36.5); MEAN CORPUSCULAR VOLUME 83.3 fl (80.0-96.0); MONO # 0.5 10^3/uL (0.0-0.8); MONO % 6.4 % (0.0-5.0); NEUTROPHILS # 4.8 10^3/uL (1.8-7.7); PLATELET COUNT, AUTOMATED 318 10^3/uL (150-450); RED BLOOD COUNT 4.44 10^6/uL (4.00-5.40); WHITE BLOOD COUNT 8.3 10^3/uL (4.0-10.0)
[2018-09-29 12:50] LABS: HEMOGLOBIN A1c 7.2 %
[2018-09-29 13:07] LABS: MALB URINE SIEMENS 5.3 MG/L; MAU/CREAT RATIO 4.4 MCG/MG (0.0-30.0)
[2018-09-29 13:11] LABS: ALBUMIN 3.8 GM/DL (3.2-5.2); ALT/SGPT 23 U/L (12-78); BILIRUBIN,TOTAL 0.2 MG/DL (0.2-1.0); BLOOD UREA NITROGEN 10 MG/DL (7-18); CALCIUM LEVEL 8.4 MG/DL (8.5-10.1); CARBON DIOXIDE LEVEL 24 MEQ/L (21-32); CHLORIDE LEVEL 108 MEQ/L (98-107); CHOLESTEROL LEVEL 168 MG/DL (<200); GLOMERULAR FILTRATION RATE > 60.0 (>60); GLUCOSE, FASTING 87 MG/DL (70-100); HDL CHOLESTEROL 52 MG/DL (>40); LDL CHOLESTEROL 105 MG/DL (<100); NON-HDL-C 116 MG/DL; POTASSIUM SERUM 5.1 MEQ/L (3.5-5.1); SODIUM LEVEL 139 MEQ/L (136-145); TOTAL PROTEIN 7.3 GM/DL (6.4-8.2); TRIGLYCERIDES LEVEL 54 MG/DL (<150)
== END ==
LOC: M SFHCLERA 09:47
PROVIDERS: ATTEND Family Medicine
DX: E11.9 Type 2 diabetes mellitus without complications (principal)

== ENCOUNTER → 2018-11-03 | Outpatient (REF) | payer OTHER, MEDICAID ==
[2018-11-03 20:25] LABS: CHLAMYDIA DNA AMPLIFICATION NEGATIVE (NEGATIVE); GC DNA AMPLIFICATION NEGATIVE (NEGATIVE)
== END ==
LOC: M SFHCLERA 16:50
PROVIDERS: ATTEND Family Medicine
DX: Z12.4 Encounter for screening for malignant neoplasm of cervix (principal)

== ENCOUNTER → 2018-12-17 | Outpatient (REF) | payer OTHER, MEDICAID | LOC: M SFHCLERA 16:29 | PROVIDERS: ATTEND Nurse Practitioner Family | DX: R39.11 Hesitancy of micturition (principal) ==

== ENCOUNTER → 2019-01-03 | Outpatient (REF) | payer OTHER, MEDICAID ==
[2019-01-03 17:14] LABS: APPEARANCE, URINE CLEAR (CLEAR); BACTERIA, URINE AUTO NEGATIVE (NEGATIVE); BILIRUBIN, URINE AUTO NEGATIVE (NEGATIVE); BLOOD, URINE BLOOD NEGATIVE (NEGATIVE); COLOR, URINE YELLOW (YELLOW); GLUCOSE, URINE (UA) AUTO NEGATIVE (NEGATIVE); KETONE, URINE AUTO NEGATIVE (NEGATIVE); LEUKOCYTE ESTERASE, URINE AUTO NEGATIVE (NEGATIVE); MUCUS, URINE SMALL (NEGATIVE); NITRITE, URINE AUTO NEGATIVE (NEGATIVE); PROTEIN, URINE AUTO NEGATIVE (NEGATIVE); RBC, URINE AUTO 0 /HPF (0-3); SPECIFIC GRAVITY URINE AUTO 1.018 (1.002-1.035); SQUAMOUS EPITHELIAL CELL UR AU 0 /HPF (0-6); UROBILINOGEN, URINE AUTO 0.2 mg/dL (0.0-2.0); WBC, URINE AUTO 0 /HPF (0-3)
[2019-01-03 17:55] LABS: ALBUMIN 3.9 GM/DL (3.2-5.2); ALT/SGPT 21 U/L (12-78); BILIRUBIN,TOTAL 0.3 MG/DL (0.2-1.0); BLOOD UREA NITROGEN 10 MG/DL (7-18); CALCIUM LEVEL 8.7 MG/DL (8.5-10.1); CARBON DIOXIDE LEVEL 30 MEQ/L (21-32); CHLORIDE LEVEL 102 MEQ/L (98-107); CREATININE FOR GFR 0.91 MG/DL (0.55-1.30); GLOMERULAR FILTRATION RATE > 60.0 (>60); GLUCOSE, FASTING 133 MG/DL (70-100); SODIUM LEVEL 138 MEQ/L (136-145); TOTAL PROTEIN 8.2 GM/DL (6.4-8.2)
[2019-01-03 17:58] LABS: HEMOGLOBIN A1c 7.2 %
[2019-01-03 18:00] LABS: HCG, SERUM QUALITATIVE NEGATIVE (NEGATIVE)
== END ==
LOC: M SFHCLERA 13:52
PROVIDERS: ATTEND Family Medicine
DX: E11.9 Type 2 diabetes mellitus without complications (principal); R10.32 Left lower quadrant pain; Z72.51 High risk heterosexual behavior

== ENCOUNTER → 2019-01-25 | Outpatient (CLI) | payer MEDICAID, OTHER ==
--- NOTE | 2019-01-25 13:51 | REP ---
Clinical: Left-sided abdominopelvic pain. Technique: Real time bonner scale ultrasound examination using curved array transducer. Findings: The bilateral kidneys are normal in contour, size, echogenicity, and reniform shape without hydronephrosis, nephrolithiasis, cystic or renal mass lesion. No perinephric fluid collections are identified. Bladder is normal in appearance and demonstrates normal bilateral ureteral jets. Right kidney measures 10.2 x 5.2 x 3.9 cm. Left kidney measures 10.3 x 5.5 x 5.8 cm. Impression: Normal renal ultrasound. Electronically Signed by Baljit Tanner MD 01/25/2019 01:43 P
--- NOTE | 2019-01-25 13:53 | REP ---
Clinical: Left lower quadrant pelvic pain . Technique: Transabdominal pelvic ultrasound followed by transvaginal examination for better evaluation of the endometrium and adnexa with color Doppler evaluation of the ovaries. Findings: Bladder is unremarkable and measures 10.2 x 6.3 x 7.8 cm . Normal retroverted uterus measures 7.1 x 4.5 x 5.1 cm . The endometrial complex measures 3.0 mm thickness. No discrete uterine or endometrial abnormalities are appreciated. Bilateral ovaries are normal in appearance and vascularity without evidence for torsion. Right ovary measures 3.0 x 2.0 x 2.2 cm ; R I = 0.68 . Left ovary measures 2.9 x 2.2 x 2.1 cm with 1.3 cm hemorrhagic follicle ; R I = 0.64 . Trace free fluid is nonspecific and likely physiologic . Impression: 1. Essentially normal uterus and adnexa. No torsion. 2. 1.3 cm left hemorrhagic cyst likely physiologic. Findings may be related to patient's symptoms. If necessary repeat ultrasound in 4-6 weeks may be obtained to evaluate for resolution. Electronically Signed by Baljit Tanner MD 01/25/2019 01:45 P
== END ==
LOC: M RAD 09:47
PROVIDERS: ATTEND Family Medicine
DX: R10.32 Left lower quadrant pain (principal); N83.201 Unspecified ovarian cyst, right side

== ENCOUNTER → 2019-03-02 | Outpatient (CLI) | payer OTHER ==
--- NOTE | 2019-03-02 16:44 | REP ---
Clinical: Dating and viability. Technique: Transabdominal and transvaginal first trimester obstetrical ultrasound with color Doppler evaluation. Findings: Uterus demonstrates decidual reaction with 8 mm gestational sac corresponding to 4 weeks 5 days gestational age without yolk sac or pole yet identified. Right ovary is normal in appearance and measures 2.8 x 1.6 x 2.2 cm. Left ovary measures 4.7 x 3.3 point 2.9 cm and includes 1.4 cm cyst possibly representing corpus luteal cyst. Small amount of free fluid noted in the pelvis is nonspecific. The bladder is unremarkable and measures 10.3 x 6.2 x 9.3 cm. Impression: Gestational sac with mean sac diameter at 4 weeks 5 days gestational age. Correlation with serial HCG levels and repeat ultrasound evaluation may be warranted. Electronically Signed by Baljit Tanner MD 03/02/2019 04:36 P
== END ==
LOC: M LRY 14:05
PROVIDERS: ATTEND Family Medicine
DX: Z32.01 Encounter for pregnancy test, result positive (principal)

== ENCOUNTER → 2019-03-10 | Outpatient (CLI) | payer OTHER, MEDICAID ==
--- NOTE | 2019-03-11 07:31 | REP ---
FIRST TRIMESTER OB AND EV PROBE ULTRASOUND: 03/10/2019. Clinical history: Supervision of , first trimester. Evaluate left ovarian corpus luteum. Comparison: 03/02/2019. Findings: With transabdominal imaging, there is a gestational sac which is better seen on the EV probe. There is a good decidual reaction and there is a pole visible on today's study with a length of 5 mm corresponding to 6 weeks 1 day which would give an EDC of 11/02/2019. heart activity noted at 113. There is a small subchorionic bleed evident about 2.7 x 2.3 x 1.7 cm. A yolk sac is evident. The left ovary measures 4 x 3.1 x 2.7 cm. There is a 2 x 1.6 cm corpus luteum in that left ovary. No adjacent free fluid. Right ovary as visualized unremarkable. Bladder only partly filled and measuring at 3.4 x 2.9 x 2.2 cm. Impression: 1. Gestational sac in the fundus with a pole at 6 weeks 1 day by crown-rump length giving EDC 11/02/2019. Heart rate 113 bpm. Small subchorionic bleed noted. 2. Corpus luteum cyst on the left side is slightly larger today as described above. Electronically Signed by Evaristo Martinez MD 03/11/2019 08:23 A
== END ==
LOC: M LRY 08:50
PROVIDERS: ATTEND Family Medicine
DX: O36.8911 Maternal care for other specified fetal problems, first trimester, fetus 1 (principal); Z3A.01 Less than 8 weeks gestation of pregnancy; O26.891 Other specified pregnancy related conditions, first trimester; N83.12 Corpus luteum cyst of left ovary

== ENCOUNTER → 2019-03-16 | Outpatient (CLI) | payer OTHER, MEDICAID ==
[2019-03-16 13:25] LABS: BASO # 0.1 10^3/uL (0.0-0.2); BASO % 0.5 % (0.0-1.0); EOS # 0.1 10^3/uL (0.0-0.50); EOS % 1.2 % (0.0-3.0); HEMATOCRIT 32.9 % (36.0-47.0); HEMOGLOBIN 10.6 g/dl (12.0-15.5); LYMPH # 3.4 10^3/uL (1.5-4.5); LYMPH % 31.2 % (24.0-44.0); MEAN CORPUSCULAR HEMOGLOBIN 26.3 pg (27.0-33.0); MEAN CORPUSCULAR HGB CONC 32.2 g/dl (32.0-36.5); MEAN CORPUSCULAR VOLUME 81.6 fl (80.0-96.0); MONO # 0.8 10^3/uL (0.0-0.8); MONO % 7.4 % (0.0-5.0); NEUTROPHILS # 6.5 10^3/uL (1.8-7.7); NEUTROPHILS % 59.4 % (36.0-66.0); PLATELET COUNT, AUTOMATED 336 10^3/uL (150-450); RED BLOOD COUNT 4.03 10^6/uL (4.00-5.40)
[2019-03-16 13:58] LABS: ALT/SGPT 19 U/L (12-78); BILIRUBIN,TOTAL 0.2 MG/DL (0.2-1.0); GLOMERULAR FILTRATION RATE > 60.0 (>60); HEMOGLOBIN A1c 7.4 %; LDH LACTATE DEHYDROGENASE 142 U/L (84-246); RUBELLA IgG QUALITATIVE IMMUNE (IMMUNE)
[2019-03-16 14:00] LABS: TOTAL PROTEIN,RANDOM URINE 10.8 MG/DL (0.0-12.0)
[2019-03-16 14:21] LABS: HEPATITIS C VIRUS ABY INDEX 0.1 INDEX (<0.8); HIV 1&2 SCREEN CENTAUR NEGATIVE (NEGATIVE)
[2019-03-16 15:40] LABS: CHLAMYDIA DNA AMPLIFICATION NEGATIVE (NEGATIVE); GC DNA AMPLIFICATION NEGATIVE (NEGATIVE)
== END ==
LOC: M SMT 10:31
PROVIDERS: ATTEND Advanced Practice Midwife
DX: Z34.81 Encounter for supervision of other normal pregnancy, first trimester (principal); Z3A.00 Weeks of gestation of pregnancy not specified

== ENCOUNTER → 2019-04-18 | Outpatient (CLI) | payer OTHER, MEDICAID | LOC: M SMT 10:26 | PROVIDERS: ATTEND Obstetrics & Gynecology | DX: Z34.81 Encounter for supervision of other normal pregnancy, first trimester (principal); Z3A.00 Weeks of gestation of pregnancy not specified ==

== ENCOUNTER → 2019-06-02 | Outpatient (CLI) | payer OTHER, MEDICAID ==
--- NOTE | 2019-06-02 13:24 | REP ---
Obstetric ultrasound for anatomy: There is a single intrauterine gestation in a transverse lie with the head to the maternal right. There is movement and cardiac activity. The heart rate is 153 beats per minute. The placenta is posterior. There is no previa or abruptio. The placenta is grade zero. Subjectively the amniotic fluid volume is normal . The cervix measures 4.2 cm length. Gestational age by today's ultrasound is 18 weeks 5 days. Gestational age by the first ultrasound is 17 weeks 6 days. Gestational age by LMP is 19 weeks 0 days. The CLARISSA for 17 weeks 6 days is 11/04/2019. weight is 271 grams/0 pounds, 9 ounces. This is the 94th percentile for 17-week 6 days and 49th percentile for 19 weeks 0 days. The following anatomic structures are identified and are unremarkable: Cranium, choroid plexus, face, lungs, four-chamber heart, diaphragm, stomach, cord insertion, three-vessel cord, kidneys, bladder, spine and upper lower extremities. Suboptimally demonstrated because of position are the cavum septum pellucidum, cerebellum, facial profile, upper lip and the cardiac right and left ventricular outflow tracts. A followup study dedicated to these structures might be considered. Electronically Signed by Percy Chaudhry MD 06/02/2019 01:16 P
== END ==
LOC: M LRY 08:40
PROVIDERS: ATTEND Obstetrics & Gynecology
DX: O24.112 Pre-existing type 2 diabetes mellitus, in pregnancy, second trimester (principal); Z3A.18 18 weeks gestation of pregnancy; O32.2XX0 Maternal care for transverse and oblique lie, not applicable or unspecified

== ENCOUNTER → 2019-06-15 | Outpatient (CLI) | payer OTHER ==
[2019-06-15 18:34] LABS: HEMOGLOBIN A1c 6.1 %
== END ==
LOC: M SMT 15:05
PROVIDERS: ATTEND Obstetrics & Gynecology
DX: O24.112 Pre-existing type 2 diabetes mellitus, in pregnancy, second trimester (principal)

== ENCOUNTER → 2019-06-24 | Outpatient (CLI) | payer OTHER, MEDICAID ==
--- NOTE | 2019-06-24 20:17 | REP ---
OB ULTRASOUND: Real-time sonographic evaluation of the gravid uterus performed. There is a single living intrauterine gestation. Estimated gestational age is 21 weeks 2 days, EDC 11/02/2019. Today's measurements indicate appropriate growth. BPD 50 mm = 21 weeks 0 days, 43rd percentile HC 186 mm = 21 weeks 0 days, 39th percentile AC 161 mm = 21 weeks 1 day, 47th percentile FL 40 mm = 22 weeks 6 days, 87th percentile HC/AC ratio 1.16, within normal range. Estimated weight 451 grams, 62nd percentile. Cervix is closed and measures 3.8 cm in length. heart rate 147 beats per minute. SEEN/GROSSLY UNREMARKABLE Lateral ventricles yes Posterior fossa yes Upper lip no Four-chamber heart no LVOT no RVOT no Stomach yes Cord insertion yes Three vessel cord yes Kidneys yes Bladder yes Spine no position: Vertex. Placenta: Posterior and fundal and grade 0 with no previa or abruption. Amniotic fluid: Within normal limits. Electronically Signed by Percy Zhou MD 06/25/2019 03:33 P
== END ==
LOC: M LRY 08:33
PROVIDERS: ATTEND Obstetrics & Gynecology
DX: O24.112 Pre-existing type 2 diabetes mellitus, in pregnancy, second trimester (principal); Z3A.21 21 weeks gestation of pregnancy

== ENCOUNTER → 2019-07-11 | Outpatient (CLI) | payer OTHER, MEDICAID ==
--- NOTE | 2019-07-12 05:54 | REP ---
Clinical: Anatomical evaluation. Comparison: 06/24/2019 . Findings: Examination demonstrates a single live intrauterine in cephalic presentation. motion is identified by technologist. Placenta is noted posterior/fundal and grade zero without evidence for placenta previa or abruption. Amniotic fluid volume is normal. Cervix measures 3.8 cm in length and appears closed. No evidence for nuchal cord. Gestational age by first US 23 weeks 3 days days with CLARISSA 11/04/2019 . Gestational age by current measurements 23 weeks 5 days with CLARISSA 11/02/2019 . FHR equals 150 beats per minute. Estimated weight 665 grams ( 65th percentile). Anatomical assessment demonstrates normal structures including cranium, choroid plexus, cavum, cerebellum/posterior fossa, facial features, lungs, four-chamber heart/ventricular outflow tracts, diaphragm, stomach, cord insertion/three-vessel cord, kidneys/bladder, spine, and extremities. Impression: Single live intrauterine in cephalic presentation demonstrating appropriate interval growth. Anatomical assessment is complete and normal. No gross abnormalities are identified. Electronically Signed by Baljit Tanner MD 07/12/2019 05:46 A
== END ==
LOC: M LRY 14:04
PROVIDERS: ATTEND Obstetrics & Gynecology
DX: O24.112 Pre-existing type 2 diabetes mellitus, in pregnancy, second trimester (principal); Z3A.23 23 weeks gestation of pregnancy; Z36.2 Encounter for other antenatal screening follow-up

== ENCOUNTER → 2019-07-18 | Outpatient (REF) | payer OTHER | LOC: M LAB REF 16:35 | PROVIDERS: ATTEND Obstetrics & Gynecology | DX: O24.113 Pre-existing type 2 diabetes mellitus, in pregnancy, third trimester (principal) ==

== ENCOUNTER → 2019-08-01 | Outpatient (CLI) | payer OTHER ==
[2019-08-01 14:01] LABS: HEMOGLOBIN 9.9 g/dl (12.0-15.5); MEAN CORPUSCULAR HEMOGLOBIN 26.1 pg (27.0-33.0); MEAN CORPUSCULAR HGB CONC 31.9 g/dl (32.0-36.5); MEAN CORPUSCULAR VOLUME 81.8 fl (80.0-96.0); PLATELET COUNT, AUTOMATED 346 10^3/uL (150-450); RED BLOOD COUNT 3.79 10^6/uL (4.00-5.40); WHITE BLOOD COUNT 13.9 10^3/uL (4.0-10.0)
[2019-08-01 14:32] LABS: TOTAL PROTEIN,RANDOM URINE 39.2 MG/DL (0.0-12.0)
[2019-08-02 06:30] LABS: ALT/SGPT 19 U/L (12-78); BILIRUBIN,TOTAL 0.2 MG/DL (0.2-1.0); CREATININE FOR GFR 0.68 MG/DL (0.55-1.30); GLOMERULAR FILTRATION RATE > 60.0 (>60); LDH LACTATE DEHYDROGENASE 137 U/L (84-246); URIC ACID 3.5 MG/DL (2.6-6.0)
== END ==
LOC: M PLALAB 10:46
PROVIDERS: ATTEND Obstetrics & Gynecology
DX: O24.319 Unspecified pre-existing diabetes mellitus in pregnancy, unspecified trimester (principal); O10.919 Unspecified pre-existing hypertension complicating pregnancy, unspecified trimester; Z3A.00 Weeks of gestation of pregnancy not specified

== ENCOUNTER → 2019-08-02 | Outpatient (CLI) | payer OTHER ==
--- NOTE | 2019-08-02 12:45 | REP ---
OB ULTRASOUND: Real-time sonographic evaluation of the gravid uterus performed. There is a single living intrauterine gestation with an estimated gestational age 26 weeks 4 days, EDC 11/04/2019. Today's measurements indicate appropriate growth. Biometry and Growth: BPD 66 mm = 26 weeks 3 days, 46th percentile HC 246 mm = 26 weeks 5 days, 51st percentile AC 225 mm = 27 weeks 0 days, 56th percentile FL 53 mm = 28 weeks 1 day, 82nd percentile HC/AC ratio 1.09, within normal range. Estimated weight 1053 grams 60th percentile. Cervical length: Closed and measures 4.8 cm in length. heart rate: 150 beats per minute. Visualized anatomy today includes posterior fossa, lateral ventricles, stomach, cord insertion, three vessel cord, kidneys, bladder and spine which are grossly unremarkable. position: Vertex. Placenta: Posterior and fundal, grade 1 with no previa or abruption. Amniotic fluid: Within normal limits. Electronically Signed by Percy Zhou MD 08/02/2019 04:56 P
== END ==
LOC: M RAD 11:35
PROVIDERS: ATTEND Obstetrics & Gynecology
DX: O24.319 Unspecified pre-existing diabetes mellitus in pregnancy, unspecified trimester (principal); Z3A.26 26 weeks gestation of pregnancy

== ENCOUNTER → 2019-08-25 | Outpatient (CLI) | payer OTHER ==
--- NOTE | 2019-08-25 11:54 | REP ---
Clinical: Growth evaluation Comparison: 08/02/2019 . Findings: Examination demonstrates a single live intrauterine in cephalic presentation. motion is identified by technologist. Placenta is noted the anterior/fundal and grade I without evidence for placenta previa or abruption. Amniotic fluid volume is normal. Cervix measures 4.1 cm in length and appears closed. No evidence for nuchal cord. Gestational age by LMP 31 weeks 0 days with CLARISSA 10/27/2019 . Gestational age by current measurements 30 weeks 0 days with CLARISSA 10/20/2019 . FHR equals 139 beats per minute. BPD 7.2 cm 29 weeks 0 days HC 26.8 cm 29 weeks 1 day AC 24.3 cm 28 weeks 4 days FL 6.1 cm 31 weeks 5 days HL 5.4 cm 31 weeks for the HC/AC ratio 1.10 Estimated weight 1443 grams (38th percentile based on age by first ultrasound). YUAN: 8.6 cm (9.0 - 23.4 cm) Umbilical S/D ratio: 2.47 (2.50-3.50) Impression: Single live demonstrating appropriate interval growth Electronically Signed by Baljit Tanner MD 08/25/2019 11:45 A
== END ==
LOC: M RAD 10:49
PROVIDERS: ATTEND Obstetrics & Gynecology
DX: O24.313 Unspecified pre-existing diabetes mellitus in pregnancy, third trimester (principal); Z3A.31 31 weeks gestation of pregnancy

== ENCOUNTER → 2019-09-05 | Outpatient (CLI) | payer OTHER, MEDICAID ==
[2019-09-05 12:39] LABS: HEMOGLOBIN A1c 6.7 %
== END ==
LOC: M PLALAB 09:04
PROVIDERS: ATTEND Obstetrics & Gynecology
DX: O24.319 Unspecified pre-existing diabetes mellitus in pregnancy, unspecified trimester (principal); Z3A.00 Weeks of gestation of pregnancy not specified

== ENCOUNTER → 2019-09-16 | Outpatient (CLI) | payer OTHER ==
--- NOTE | 2019-09-16 15:09 | REP ---
OBSTETRIC SONOGRAPHY: HISTORY: Supervision of growth study. FINDINGS: Scanning through the gravid uterus demonstrates a viable single intrauterine gestation in a cephalic lie. motion is observed and heart rate is recorded at 139 beats per minute. A posterofundal placenta is seen grade 1-2. Amniotic fluid is subjectively normal. No extrauterine abnormality is observed. There has been less than expected interval growth. The following anatomic structures are again identified and felt to be unremarkable: cranium, cavum, stomach, kidneys, spine. Biometry Chart: BPD 7.6 cm = 30 weeks 4 days HC 27.9 cm = 30 weeks 3 days AC 27.9 cm = 32 weeks 0 days FL 6.3 cm = 32 weeks 5 days HL 5.5 cm = 32 weeks 0 days HC/AC ratio normal 1.00 Cephalic index normal 0.77. Estimated weight 1867 grams, 4 pounds 1 ounce, 24th percentile for 33 weeks 0 days. YUAN normal 10.4 cm. S/D ratio normal 2.81. IMPRESSION: Viable single intrauterine gestation at 31 weeks 4 days by today's composite sonographic criteria. Expected gestational age estimate based on prior sonography 33 weeks 0 days. CLARISSA by prior sonography November 04, 2019. Estimated weight in the 24th percentile. Electronically Signed by Johnny España MD 09/16/2019 08:48 P
== END ==
LOC: M RAD 09:13
PROVIDERS: ATTEND Obstetrics & Gynecology
DX: Z36.2 Encounter for other antenatal screening follow-up (principal); Z3A.31 31 weeks gestation of pregnancy

== ENCOUNTER → 2019-09-21 | Outpatient (CLI) | payer OTHER, MEDICAID ==
[2019-09-21 17:52] LABS: HEMATOCRIT 29.3 % (36.0-47.0); HEMOGLOBIN 9.3 g/dl (12.0-15.5); MEAN CORPUSCULAR HEMOGLOBIN 25.8 pg (27.0-33.0); MEAN CORPUSCULAR HGB CONC 31.7 g/dl (32.0-36.5); MEAN CORPUSCULAR VOLUME 81.4 fl (80.0-96.0); PLATELET COUNT, AUTOMATED 326 10^3/uL (150-450); WHITE BLOOD COUNT 14.3 10^3/uL (4.0-10.0)
[2019-09-21 17:53] LABS: ALBUMIN 2.7 GM/DL (3.2-5.2); ALT/SGPT 25 U/L (12-78); BILIRUBIN,TOTAL 0.2 MG/DL (0.2-1.0); BLOOD UREA NITROGEN 7 MG/DL (7-18); CALCIUM LEVEL 8.2 MG/DL (8.5-10.1); CARBON DIOXIDE LEVEL 22 MEQ/L (21-32); CHLORIDE LEVEL 109 MEQ/L (98-107); CREATININE FOR GFR 0.66 MG/DL (0.55-1.30); GLOMERULAR FILTRATION RATE > 60.0 (>60); GLUCOSE, FASTING 101 MG/DL (70-100); POTASSIUM SERUM 4.3 MEQ/L (3.5-5.1); SODIUM LEVEL 139 MEQ/L (136-145); TOTAL PROTEIN 6.4 GM/DL (6.4-8.2)
[2019-09-21 18:22] LABS: TOTAL PROTEIN,RANDOM URINE 18.6 MG/DL (0.0-12.0)
== END ==
LOC: M PLALAB 14:25
PROVIDERS: ATTEND Obstetrics & Gynecology
DX: O99.711 Diseases of the skin and subcutaneous tissue complicating pregnancy, first trimester (principal); L29.9 Pruritus, unspecified; O10.913 Unspecified pre-existing hypertension complicating pregnancy, third trimester; Z3A.00 Weeks of gestation of pregnancy not specified

== ENCOUNTER 2019-09-26 11:37 | Outpatient (CLI) | payer MEDICAID, OTHER ==
[~2019-09-26] VITALS: Ht 160 cm; Wt 114.6 kg
[2019-09-26] MEDS ORDERED: NOVOINJ12 SC (11:57)
[2019-09-26] MEDS ORDERED: OMEP-218 PO (11:57)
[2019-09-26] MEDS ORDERED: NOVOINJ13 SC (11:57)
[2019-09-26] MEDS ORDERED: PRENTAB9 PO (11:57)
[2019-09-26 12:00] VITALS: BP 178/104
[2019-09-26] MEDS ORDERED: BETAMETHASONE SOLUSPAN 6MG/ML INJ 5ML (J0702) IM SCH (12:00)
[2019-09-26 12:01] VITALS: BP 159/89
[2019-09-26 12:25] VITALS: BP 140/80
[2019-09-27] MEDS ORDERED: ASPI81TA85 PO (12:02)
[2019-09-27] MEDS ORDERED: PEPC10TA6 PO (12:02)
== END 2019-09-26 12:27 | disposition home or self-care (01) ==
LOC: M LDO 11:37
PROVIDERS: ATTEND Advanced Practice Midwife
DX: O10.019 Pre-existing essential hypertension complicating pregnancy, unspecified trimester (principal); O24.119 Pre-existing type 2 diabetes mellitus, in pregnancy, unspecified trimester; O26.619 Liver and biliary tract disorders in pregnancy, unspecified trimester; Z79.4 Long term (current) use of insulin; Z79.899 Other long term (current) drug therapy; Z3A.00 Weeks of gestation of pregnancy not specified
CPT/HCPCS: 96372; J0702

== ENCOUNTER → 2019-09-26 | Outpatient (REF) | payer OTHER, MEDICAID ==
[~2019-09-26] MED LIST: ASPI81TA85 PO; NOVOINJ12 SC; NOVOINJ13 SC; OMEP-218 PO; PEPC10TA6 PO; PRENTAB9 PO
--- NOTE | 2019-09-26 19:30 | IPNPDOC ---
Text Note Date of Service The patient was seen on 09/26/19. NOTE Subjective: Patient is a 33-year-old female who presents to L&D after being sent over from the office by Dr. Lopez for betamethasone injections. She has multiple comorbidities during this including: pregestational diabetes managed by insulin, chronic hypertension and now she is diagnosed with cholestasis. Dr. Lopez had done APFT prior to patient coming to L&D. She is receiving betamethasone IM injection today and will return again tomorrow for her repeat injection. She is scheduled for induction of labor on 10/04/19. Patient discharged to home after injection. VS,Fishbone, I+O VS, Fishbone, I+O Vital Signs Label Value Date Time Pulse 89 09/26/19 1201 Pulse 89 09/26/19 1201 Respiratory Rate 16 bpm 09/26/19 1201 Blood Pressure Assessment 159/89 (112) 09/26/19 1201 Source Automatic Cuff (NIBP) Pulse 60 09/26/19 1225 Respiratory Rate 16 bpm 09/26/19 1225 Blood Pressure Assessment 140/80 (100) 09/26/19 1225 Source Manual Cuff/Auscultation SALEEM EVANS CNM Sep 26, 2019 19:30
== END ==
LOC: M SFHCWAGY 13:45
PROVIDERS: ATTEND Obstetrics & Gynecology
DX: O24.319 Unspecified pre-existing diabetes mellitus in pregnancy, unspecified trimester (principal); Z3A.00 Weeks of gestation of pregnancy not specified

== ENCOUNTER 2019-10-04 07:27 | Inpatient (IN) | payer OTHER ==
[2019-10-04] VITALS (13 sets, daily range): BP systolic 132–160; BP diastolic 56–77
[~2019-10-04] VITALS: Ht 160 cm; Wt 117.6 kg
[2019-10-04] MEDS ORDERED: NS 1,000 ML IV SCH (08:01)
[2019-10-04] MEDS ORDERED: PENICILLIN G POTASSIUM IV 5 MU in D5W MINI-BAG PLUS 100 ML IV STA (08:01)
[2019-10-04] MEDS ORDERED: LACTATED RINGER'S 1000 ML IV STA (08:01)
[2019-10-04] MEDS ORDERED: INSULIN IV RATE CHANGE DOCUMENTATION ML/HR XX SCH (08:30)
[2019-10-04] MEDS ORDERED: INSULIN HUMAN REGULAR 100 UNITS in NS 99 ML IV SCH ×2 (08:30→08:40)
[2019-10-04] MEDS ORDERED: **PENDING PCN ENTRY XX SCH (09:00)
[2019-10-04] MEDS ORDERED: LABETALOL 100 MG TAB PO SCH (09:00)
[2019-10-04 09:24] LABS: HEMATOCRIT 28.5 % (36.0-47.0); MEAN CORPUSCULAR HGB CONC 31.6 g/dl (32.0-36.5); MEAN CORPUSCULAR VOLUME 79.2 fl (80.0-96.0); PLATELET COUNT, AUTOMATED 342 10^3/uL (150-450); WHITE BLOOD COUNT 14.4 10^3/uL (4.0-10.0)
[2019-10-04] MEDS ORDERED: OXYTOCIN DRIP 30 UNITS in IV 1 EA IV SCH (10:15)
[2019-10-04 10:34] LABS: ALT/SGPT 16 U/L (12-78); BILIRUBIN,TOTAL 0.1 MG/DL (0.2-1.0); CREATININE FOR GFR 0.69 MG/DL (0.55-1.30); GLOMERULAR FILTRATION RATE > 60.0 (>60); LDH LACTATE DEHYDROGENASE 197 U/L (84-246); URIC ACID 4.4 MG/DL (2.6-6.0)
[2019-10-04] MEDS ORDERED: PENICILLIN G POTASSIUM IV 2.5 MU in IV 1 EA IV SCH (12:15)
[2019-10-04] MEDS ORDERED: BUTORPHANOL 2 MG/ML INJ (J0595) IV ONE (17:00)
[2019-10-04] MEDS ORDERED: FAMOTIDINE 20 MG TAB PO ONE (17:00)
[2019-10-04] MEDS ORDERED: PROMETHAZINE INJ 25 MG/ML VIAL (J2550) IV ONE (17:00)
[2019-10-04] MEDS ORDERED: FENTANYL 2MCG/ML ROPIVACAINE 0.2% IN 0.9% NACL 100ML IVBAG As Ordered ONE (17:07)
[2019-10-04 17:51] LABS: HEMATOCRIT 28.8 % (36.0-47.0); HEMOGLOBIN 9.2 g/dl (12.0-15.5); MEAN CORPUSCULAR HGB CONC 31.9 g/dl (32.0-36.5); MEAN CORPUSCULAR VOLUME 78.3 fl (80.0-96.0); PLATELET COUNT, AUTOMATED 271 10^3/uL (150-450); RED BLOOD COUNT 3.68 10^6/uL (4.00-5.40); WHITE BLOOD COUNT 16.3 10^3/uL (4.0-10.0)
[2019-10-04] MEDS ORDERED: FENTANYL/ROPIVACAINE/NACL BAG 100 ML EPIDURAL SCH (19:00)
[2019-10-04] MEDS ORDERED: diphenhydrAMINE INJ 50MG/ML VIAL (J1200) IV PRN (19:00)
[2019-10-04] MEDS ORDERED: ePHEDrine SULFATE 25 MG/5 ML(5MG/ML) SYRINGE IV PRN (19:00)
[2019-10-04] MEDS ORDERED: NALOXONE INJ 0.4 MG/1 ML VIAL (J2310) IV PRN (19:00)
[2019-10-04] MEDS ORDERED: LACTATED RINGER'S 1000 ML IV PRN (19:00)
[2019-10-04] MEDS ORDERED: EPIDURAL COMMENT XX SCH (19:00)
[2019-10-04] MEDS ORDERED: EPIDURAL/PCA KEYS XX PRN (19:00)
[2019-10-04] MEDS ORDERED: REFRIGERATOR IV KEYS XX PRN (19:00)
[2019-10-04] MEDS ORDERED: ONDANSETRON 4MG/2ML VIAL (J2405) IV PRN (19:00)
[2019-10-04] MEDS: PENICILLIN G POTASSIUM IV 2.5 MU in IV 1 EA IV SCH (23:15)
[2019-10-05] VITALS (26 sets, daily range): BP systolic 109–191; BP diastolic 55–87
[2019-10-05] MEDS: PENICILLIN G POTASSIUM IV 2.5 MU in IV 1 EA IV SCH (03:03)
[2019-10-05] MEDS ORDERED: OXYTOCIN DRIP 30 UNITS in IV 1 EA IV SCH (06:58)
[2019-10-05] MEDS ORDERED: LR 1,000 ML IV SCH (06:58)
[2019-10-05] MEDS ORDERED: ACETAMINOPHEN 500 MG TAB PO PRN (07:00)
[2019-10-05] MEDS ORDERED: DIBUCAINE 1% OINTMENT 30GM TOP PRN (07:00)
[2019-10-05] MEDS ORDERED: IBUPROFEN 600 MG TAB PO PRN (07:00)
[2019-10-05] MEDS ORDERED: MEASLES,MUMPS,RUBELLA VACCINE INJ (MMR-II) (90707) SC SCH (07:00)
[2019-10-05] MEDS ORDERED: RHOGAM 300 MCG (1500 IU) INJ (J2790) IM SCH (07:00)
[2019-10-05] MEDS ORDERED: ONDANSETRON 4MG/2ML VIAL (J2405) IV PRN (07:00)
[2019-10-05] MEDS ORDERED: ACETAMINOPHEN TAB 650MG DOSE (2X325MG) PO PRN (07:00)
[2019-10-05] MEDS ORDERED: DOCUSATE SODIUM 100 MG CAP PO PRN (07:00)
[2019-10-05] MEDS ORDERED: PROMETHAZINE 25 MG TAB PO PRN (07:00)
[2019-10-05] MEDS: HumuLIN R (REGULAR) INSULIN (NovoLIN R) **100U/ML** PER UNIT SC SCH ×2 (08:41→18:23)
[2019-10-05] MEDS: HumuLIN N INSULIN (NovoLIN N) PER UNIT SC SCH ×2 (08:41→18:22)
[2019-10-05] MEDS: LABETALOL 100 MG TAB PO SCH ×2 (08:42→20:56)
[2019-10-05] MEDS: PRENATAL VITAMINS CHEWABLE TABLET PO SCH (08:43)
[2019-10-05] MEDS: IBUPROFEN 800 MG TAB PO PRN ×2 (08:43→19:48)
[2019-10-06 06:00] VITALS: BP 128/74
[2019-10-06] MEDS: IBUPROFEN 800 MG TAB PO PRN ×2 (07:47→17:55)
--- NOTE | 2019-10-06 08:11 | IPNPDOC ---
Progress Note Date of Service: Oct 06, 2019 Day#: 1 Progress Note SUBJECT: Kaylene Garduno is a 33-year-old 4 now Para 2-1-1-2 status post uncomplicated vaginal delivery after at 36-5/7 weeks' at approximately 0625 hours on 10/05/2019 of a female 5 pounds 4 ounces (2405 grams) doing well day # 1. She has been ambulating, voiding spontaneously without issue and tolerating regular diet. Breast feeding without issue. Reports lochia is like a normal period. Patient is ambulating well. Reports some c ramping with . Denies any pain. OBJECTIVE: VITAL SIGNS: Some elevated blood pressures since delivery, otherwise within normal limits, afebrile. Alert and oriented times three. Breath sounds clear to auscultation. Heart rate: Regular rate and rhythm, no murmurs, rubs or gallops. Abdomen: Fundus firm at U. Soft. Minimal lochia. ASSESSMENT: day #1. PLAN: 1. Discharge to home tomorrow. 2. Tylenol and Motrin for pain. 3. Encourage breast feeding and ambulation. 4. Continue monitoring blood pressures. 5. Continue routine care. VS, I&O, 24H, Fishbone Vital Signs/I&O Vital Signs Date Time Temp Pulse Resp B/P (MAP) Pulse Ox O2 Delivery O2 Flow Rate FiO2 10/06/19 06:00 98.5 81 18 128/74 (92) I&O- Last 24 Hours up to 6 AM 10/06/19 06:00 Intake Total 500 ml Output Total 800 ml Balance -300 ml Laboratory Data 24H LABS Laboratory Tests 2 10/05/19 11:11: Bedside Glucose (Misc Panel) 135H 10/05/19 15:57: Bedside Glucose (Misc Panel) 131H 10/05/19 20:41: Bedside Glucose (Misc Panel) 115H SALEEM EVANS CNM Oct 06, 2019 08:11
[2019-10-06] MEDS: HumuLIN R (REGULAR) INSULIN (NovoLIN R) **100U/ML** PER UNIT SC SCH ×2 (08:18→18:32)
[2019-10-06] MEDS: HumuLIN N INSULIN (NovoLIN N) PER UNIT SC SCH ×2 (08:18→18:32)
[2019-10-06] MEDS: PRENATAL VITAMINS CHEWABLE TABLET PO SCH (08:56)
[2019-10-06] MEDS: LABETALOL 100 MG TAB PO SCH ×2 (08:57→21:00)
[2019-10-06] MEDS ORDERED: INFLUENZA QUADRIVALENT PF VACCINE 0.5ML SYRINGE (90686) IM ONE (12:45)
[2019-10-06 18:00] VITALS: BP 137/76
[2019-10-06 21:00] VITALS: BP 145/79
[2019-10-07 05:00] VITALS: BP 143/81
[2019-10-07] MEDS ORDERED: IBUP80TA PO (07:14)
[2019-10-07] MEDS ORDERED: INSUNSD SC ×2 (07:14)
[2019-10-07] MEDS ORDERED: ACET-683 PO (07:14)
[2019-10-07] MEDS ORDERED: INSURSD SC (07:14)
[2019-10-07] MEDS: HumuLIN N INSULIN (NovoLIN N) PER UNIT SC SCH (07:30)
[2019-10-07] MEDS: HumuLIN R (REGULAR) INSULIN (NovoLIN R) **100U/ML** PER UNIT SC SCH (07:30)
[2019-10-07 09:01] VITALS: BP 134/79
[2019-10-07] MEDS: LABETALOL 100 MG TAB PO SCH (09:01)
[2019-10-07] MEDS: PRENATAL VITAMINS CHEWABLE TABLET PO SCH ×2 (09:01→12:24)
[2019-10-07] MEDS ORDERED: GLYB5TA PO (10:54)
[2019-10-07] MEDS ORDERED: LABE10TAB PO (10:55)
[2019-10-07] MEDS ORDERED: glyBURIDE 2.5 MG TAB PO SCH (17:30)
== END 2019-10-07 12:07 | disposition home or self-care (01) | DRG 560 ==
LOC: M LDI 07:27 → M OBS 10-05 09:42
PROVIDERS: ADMIT Obstetrics & Gynecology; ATTEND Obstetrics & Gynecology
PROC: 3E033VJ Introduction of Other Hormone into Peripheral Vein, Percutaneous Approach (ICD-10-PCS; 2019-10-04)
PROC: 10E0XZZ Delivery of Products of Conception, External Approach (ICD-10-PCS; principal; 2019-10-05)
PROC: 10907ZC Drainage of Amniotic Fluid, Therapeutic from Products of Conception, Via Natural or Artificial Opening (ICD-10-PCS; 2019-10-05)
DX: O34.219 Maternal care for unspecified type scar from previous cesarean delivery (principal); Z3A.36 36 weeks gestation of pregnancy; Z37.0 Single live birth; O99.824 Streptococcus B carrier state complicating childbirth; O24.12 Pre-existing type 2 diabetes mellitus, in childbirth; E11.9 Type 2 diabetes mellitus without complications; O26.62 Liver and biliary tract disorders in childbirth; K83.1 Obstruction of bile duct; O10.02 Pre-existing essential hypertension complicating childbirth

== ENCOUNTER → 2021-01-03 | Outpatient (CLI) | payer OTHER ==
[~2021-01-03] MED LIST changes: +ACET-683 PO; -ASPI81TA85 PO; +ASPI81TA86 PO; +GLYB5TAB6 PO; +IBUP80TA PO; +INSUNSD SC; +INSURSD SC; +LABE100T4 PO
[2021-01-03 10:28] LABS: BASO # 0.1 10^3/uL (0.0-0.2); BASO % 0.6 % (0.0-1.0); EOS # 0.2 10^3/uL (0.0-0.5); EOS % 1.7 % (0.0-3.0); HEMATOCRIT 39.7 % (36.0-47.0); LYMPH # 3.3 10^3/uL (1.5-5.0); MEAN CORPUSCULAR HEMOGLOBIN 26.6 pg (27.0-33.0); MEAN CORPUSCULAR HGB CONC 32.7 g/dl (32.0-36.5); MEAN CORPUSCULAR VOLUME 81.4 fl (80.0-96.0); MONO # 0.6 10^3/uL (0.0-0.8); MONO % 5.9 % (2.0-8.0); NEUTROPHILS # 6.7 10^3/uL (1.5-8.5); NEUTROPHILS % 61.3 % (36.0-66.0); PLATELET COUNT, AUTOMATED 315 10^3/uL (150-450); RED BLOOD COUNT 4.88 10^6/uL (4.00-5.40); WHITE BLOOD COUNT 10.9 10^3/uL (4.0-10.0)
[2021-01-03 10:50] LABS: HEMOGLOBIN A1c 12.8 %
[2021-01-03 10:56] LABS: BLOOD UREA NITROGEN 11 MG/DL (7-18); CARBON DIOXIDE LEVEL 24 MEQ/L (21-32); CHLORIDE LEVEL 104 MEQ/L (98-107); CREATININE FOR GFR 0.81 MG/DL (0.55-1.30); GLOMERULAR FILTRATION RATE > 60.0 (>60); GLUCOSE, FASTING 339 MG/DL (70-100); POTASSIUM SERUM 4.5 MEQ/L (3.5-5.1); SODIUM LEVEL 134 MEQ/L (136-145)
[2021-01-03 10:57] LABS: ALBUMIN 3.8 GM/DL (3.2-5.2); ALT/SGPT 13 U/L (12-78); BILIRUBIN,TOTAL 0.3 MG/DL (0.2-1.0); CALCIUM LEVEL 9.1 MG/DL (8.5-10.1); TOTAL PROTEIN 7.2 GM/DL (6.4-8.2)
[2021-01-03 11:09] LABS: CREATININE, URINE 98.1 MG/DL; MALB URINE SIEMENS 7.2 MG/L; MAU/CREAT RATIO 7.3 MCG/MG (0.0-30.0)
== END ==
LOC: M LAB 08:40
PROVIDERS: ATTEND Nurse Practitioner Family
DX: I10 Essential (primary) hypertension (principal); Z86.32 Personal history of gestational diabetes

== ENCOUNTER → 2021-03-25 | Outpatient (REF) | payer OTHER, MEDICAID | LOC: M LAB REF 18:32 | PROVIDERS: ATTEND Obstetrics & Gynecology | DX: Z12.4 Encounter for screening for malignant neoplasm of cervix (principal) ==

== ENCOUNTER → 2021-07-31 | Outpatient (CLI) | payer OTHER, MEDICAID ==
[~2021-07-31] MED LIST changes: +OMEP-173 PO; -OMEP-218 PO
== END ==
LOC: M SOG 10:55
PROVIDERS: ATTEND Orthopaedic Surgery Adult Reconstructive Orthopaedic Surgery
DX: M25.562 Pain in left knee (principal); M25.561 Pain in right knee; M25.761 Osteophyte, right knee; M25.762 Osteophyte, left knee

== ENCOUNTER → 2021-08-15 | Outpatient (CLI) | payer OTHER | LOC: M PLAIMG 10:03 | PROVIDERS: ATTEND Orthopaedic Surgery Adult Reconstructive Orthopaedic Surgery | DX: M22.2X2 Patellofemoral disorders, left knee (principal); M22.42 Chondromalacia patellae, left knee; M25.462 Effusion, left knee; M92.522 Juvenile osteochondrosis of tibia tubercle, left leg ==

== ENCOUNTER 2022-03-29 22:42 | Emergency (ER) | payer OTHER ==
[~2022-03-29] VITALS: Ht 160 cm; Wt 117.8 kg
[~2022-03-29 22:42] MED LIST changes: -LABE100T4 PO; +LABE100T6 PO
[2022-03-30] MEDS ORDERED: amLODIPine 5 MG TAB PO ONE (07:40)
[2022-03-30 08:07] LABS: APPEARANCE, URINE HAZY (CLEAR); BACTERIA, URINE AUTO NEGATIVE (NEGATIVE); BILIRUBIN, URINE AUTO NEGATIVE (NEGATIVE); BLOOD, URINE BLOOD NEGATIVE (NEGATIVE); COLOR, URINE YELLOW (YELLOW); GLUCOSE, URINE (UA) AUTO NEGATIVE (NEGATIVE); KETONE, URINE AUTO TRACE mg/dL (NEGATIVE); LEUKOCYTE ESTERASE, URINE AUTO 1+ (NEGATIVE); MUCUS, URINE SMALL (NEGATIVE); NITRITE, URINE AUTO NEGATIVE (NEGATIVE); PROTEIN, URINE AUTO NEGATIVE (NEGATIVE); RBC, URINE AUTO 1 /HPF (0-3); SPECIFIC GRAVITY URINE AUTO 1.026 (1.002-1.035); SQUAMOUS EPITHELIAL CELL UR AU 3 /HPF (0-6); WBC, URINE AUTO 1 /HPF (0-3)
[2022-03-30 08:13] LABS: BASO # 0.1 10^3/uL (0.0-0.2); BASO % 0.5 % (0.0-1.0); EOS # 0.3 10^3/uL (0.0-0.5); HEMATOCRIT 38.7 % (36.0-47.0); HEMOGLOBIN 12.3 g/dl (12.0-15.5); LYMPH # 4.9 10^3/uL (1.5-5.0); LYMPH % 33.5 % (24.0-44.0); MEAN CORPUSCULAR HEMOGLOBIN 25.6 pg (27.0-33.0); MEAN CORPUSCULAR HGB CONC 31.8 g/dl (32.0-36.5); MEAN CORPUSCULAR VOLUME 80.6 fl (80.0-96.0); MONO # 0.9 10^3/uL (0.0-0.8); MONO % 5.9 % (2.0-8.0); NEUTROPHILS # 8.4 10^3/uL (1.5-8.5); NEUTROPHILS % 57.8 % (36.0-66.0); WHITE BLOOD COUNT 14.6 10^3/uL (4.0-10.0)
[2022-03-30] MEDS ORDERED: diphenhydrAMINE 50MG/ML VIAL (J1200) IV ONE (08:30)
[2022-03-30] MEDS ORDERED: NS 1,000 ML IV ONE (08:30)
[2022-03-30] MEDS ORDERED: KETOROLAC 30 MG/ML 1ML VIAL IV ONE (08:30)
[2022-03-30 08:45] LABS: PLATELET COUNT, AUTOMATED 272 10^3/uL (150-450)
[2022-03-30 09:10] VITALS: BP 168/100
[2022-03-30 10:37] VITALS: BP 153/98
[2022-03-30] MEDS ORDERED: POTASSIUM CHLORIDE 10MEQ SR TABLET PO ONE (10:50)
[2022-03-30] MEDS ORDERED: CHLORTHALIDONE 12.5MG PER 1/2 TABLET PO ONE (10:50)
[2022-03-30] MEDS ORDERED: AMLO1TAB24 PO ×2 (10:52→11:34)
[2022-03-30] MEDS ORDERED: CHLO125TA PO ×2 (10:52→11:34)
[2022-03-30] MEDS ORDERED: POTA1TAB14 PO ×2 (10:52→11:34)
== END 2022-03-30 11:39 | disposition home or self-care (01) ==
LOC: M ED 22:42
DX: R51.9 Headache, unspecified (principal); I10 Essential (primary) hypertension; E11.9 Type 2 diabetes mellitus without complications; F17.200 Nicotine dependence, unspecified, uncomplicated; Z79.899 Other long term (current) drug therapy
CPT/HCPCS: 70450; 71046; 80047; 81001; 84702; 85025; 93005; 96374; 96375; 99284; J1200; J1885

== ENCOUNTER → 2022-04-07 | Outpatient (CLI) | payer MEDICAID, OTHER ==
[~2022-04-07] MED LIST changes: +AMLO1TAB24 PO; +CHLO125TA PO; +POTA1TAB14 PO
[2022-04-07 14:22] LABS: ALBUMIN 3.5 GM/DL (3.2-5.2); ALT/SGPT 17 U/L (12-78); BILIRUBIN,TOTAL 0.2 MG/DL (0.2-1.0); BLOOD UREA NITROGEN 10 MG/DL (7-18); CARBON DIOXIDE LEVEL 26 MEQ/L (21-32); CHLORIDE LEVEL 106 MEQ/L (98-107); GLOMERULAR FILTRATION RATE > 60.0 (>60); GLUCOSE, FASTING 85 MG/DL (70-100); POTASSIUM SERUM 4.6 MEQ/L (3.5-5.1); SODIUM LEVEL 139 MEQ/L (136-145); TOTAL PROTEIN 7.1 GM/DL (6.4-8.2)
[2022-04-08 00:01] LABS: HEMOGLOBIN A1c 6.6 %
== END ==
LOC: M LAB 12:02
PROVIDERS: ATTEND Family Medicine
DX: E11.9 Type 2 diabetes mellitus without complications (principal)